=== PATIENT | female | born 1960 | race Caucasian/White ===

== ENCOUNTER 2017-06-22 15:37 | Emergency (ER) | payer MEDICAID, MEDICARE ==
--- NOTE | 2017-06-22 15:42 | ED Physician Chart ---
ED Chief Complaint/HPI - Patient Information Date Seen:: 06/22/17 Time Seen:: 15:30 Chief Complaint:: Back Pain History of Present Illness:: onset x 3 days of low back pain; pt denies trauma, H/As, neck pain, C/P, SOB, Abd. Pain, A/N/V/D/C, fever, chills, or urinary s/s Historian:: Patient, EMS Review:: Nurse's Note Reviewed, Old Chart Reviewed, EMS run form Reviewed <Kings Harrington - Last Filed: 06/22/17 18:42> - Patient Information Allergies:: Allergies Allergy/AdvReac Type Severity Reaction Status Date / Time iodine Allergy Verified 06/22/17 15:48 ketorolac Allergy Verified 06/22/17 15:49 meperidine Allergy Verified 06/22/17 15:49 NSAIDS (Non-Steroidal Allergy Verified 06/22/17 15:49 Anti-Inflamma tramadol Allergy Verified 06/22/17 15:49 Vitals:: Vital Signs - 8 hr 06/22/17 06/22/17 06/22/17 15:50 16:19 17:26 Temp 99.8 F HR 91 83 76 RR 18 18 16 BP 146/110 139/80 135/87 O2 Sat % 97 97 95 06/22/17 18:48 Temp HR 81 RR 16 BP 129/95 O2 Sat % 95 <Pedro Nguyen - Last Filed: 06/22/17 21:09> ED Review of Systems - Review of Systems General/Constitutional: No fever, No chills, No weight loss, No weakness, No diaphoresis, No edema, No loss of appetite Skin: No skin lesions, No rash, No bruising Head: No headache, No light-headedness Eyes: No loss of vision, No pain, No diplopia ENT: No earache, No nasal drainage, No sore throat, No tinnitus Neck: No neck pain, No swelling, No thyromegaly, No stiffness, No mass noted Cardio Vascular: No chest pain, No palpitations, No PND, No orthopnea, No edema Pulmonary: No SOB, No cough, No sputum, No wheezing GI: No nausea, No vomiting, No diarrhea, No pain, No melena, No hematochezia, No constipation, No hematemesis G/U: No dysuria, No frequency, No hematuria Resource Development Director: No vaginal discharge, No abnormal vaginal bleed, No contraction Musculoskeletal: Bone or joint pain, Back pain, Muscle pain Endocrine: No polyuria, No polydipsia Psychiatric: Prior psych history, Depression, No anxiety, No suicidal ideation, No homicidal ideation, No auditory hallucination, No visual hallucination Hematopoietic: No bruising, No lymphadenopathy Allergic/Immuno: No urticaria, No angioedema Neurological: No syncope, No focal symptoms, No weakness, No paresthesia, No headache, No seizure, No dizziness, No confusion, No vertigo <Kings Harrington - Last Filed: 06/22/17 18:42> ED Past Medical History - Past Medical History Obtainable: Yes Past Medical History: HTN, CAD, Asthma/COPD, CVA/TIA, Dyslipidemia, Thyroid disorder, Other (Leukemia; Multiple Myeloma) Family History: Diabetes Melitus, HTN, Cancer Social History: Non Smoker, No Alcohol, No Drug Use, Single, Care Facility Surgical History: None Psychiatricy History: Depression Medication: Reviewed <KarenhollandKings - Last Filed: 06/22/17 18:42> Family Medical History - Family Member Mother History Unknown: Yes <Kings Harrington - Last Filed: 06/22/17 18:42> ED Physical Exam - Physical Examination General/Constitutional: Awake, Well-developed, well-nourished, Alert, No distress, GCS 15, Non-toxic appearing, Ambulatory Head: Atraumatic Eyes: Lids, conjuctiva normal, PERRL, EOMI Skin: Nl inspection, No rash, No skin lesions, No ecchymosis, Well hydrated, No lymphadenopathy ENMT: External ears, nose nl, TM canals nl, Nasal exam nl, Lips, teeth, gums nl , Oropharynx nl, Tonsils nl Neck: Nontender, Full ROM w/o pain, No JVD, No nuchal rigidity, No bruit, No mass, No stridor Respiratory: Nl effort/Exclusion, Clear to Auscultation, No Wheeze/Rhonchi/Rales Cardio Vascular: No murmur, gallop, rubs, NL S1 S2, Carotid/Femoral/Distal pulses equal bilaterally Other Cardio Vascular comments:: Irregular Irregular Rhythm GI: No tenderness/rebounding/guarding, No organomegaly, No hernia, Normal BS's, Nondistended, No mass/bruits, No McBurney tenderness : No CVA tenderness Extremities: No tenderness or effusion, Full ROM, normal strength in all extremities, No edema, Normal digits & nails Neuro/Psych: Alert/oriented, DTR's symmetric, Normal sensory exam, Normal motor strength, Judgement/insight normal, Mood normal, Normal gait, No focal deficits Misc: Normal back, No paraspinal tenderness <Kings Harrington - Last Filed: 06/22/17 18:42> ED Labs/Radiology/EKG Results - Lab Results Comments:: WBC: 14.4; Na+: 134 - EKG Interpretations EKG Time:: 15:51 Rate & Rhythm: 100; Atrial Flutter/Fibrillation Comments:: non-specific st-t changes <Kings Harrington - Last Filed: 06/22/17 18:42> - Lab Results Results: Laboratory Tests 06/22/17 06/22/17 06/22/17 15:55 15:55 15:55 WBC 14.4 H RBC 4.38 Hgb 14.1 Hct 42.0 MCV 96.0 MCH 32.2 H MCHC Differential 33.6 RDW 15.4 Plt Count 289 MPV 7.2 Neutrophils % 75.4 Lymphocytes % 8.7 L Monocytes % 10.8 H Eosinophils % 4.1 Basophils % 1.0 PT 10.4 INR 1.00 Sodium 134 L Potassium 4.4 Chloride 99 Carbon Dioxide 26.8 Anion Gap 12.6 BUN 9 Creatinine 0.8 Est GFR ( Amer) > 60.0 Est GFR (Non-Af Amer) > 60.0 BUN/Creatinine Ratio 11.3 Glucose 100 Whole Bld Lactic Acid Calcium 9.4 Total Bilirubin 0.6 AST 32 ALT 16 Alkaline Phosphatase 99 Creatine Kinase 41 Troponin I B-Natriuretic Peptide Total Protein 6.8 Albumin 3.9 Globulin 2.9 Albumin/Globulin Ratio 1.3 Triglycerides 129 Cholesterol 140 LDL Cholesterol Direct 49 L HDL Cholesterol 57 Amylase 13 L Lipase 7 L Serum , Qual 06/22/17 06/22/17 06/22/17 15:55 15:55 15:55 WBC RBC Hgb Hct MCV MCH MCHC Differential RDW Plt Count MPV Neutrophils % Lymphocytes % Monocytes % Eosinophils % Basophils % PT INR Sodium Potassium Chloride Carbon Dioxide Anion Gap BUN Creatinine Est GFR ( Amer) Est GFR (Non-Af Amer) BUN/Creatinine Ratio Glucose Whole Bld Lactic Acid Calcium Total Bilirubin AST ALT Alkaline Phosphatase Creatine Kinase Troponin I 0.02 B-Natriuretic Peptide 23.4 Total Protein Albumin Globulin Albumin/Globulin Ratio Triglycerides Cholesterol LDL Cholesterol Direct HDL Cholesterol Amylase Lipase Serum , Qual NEGATIVE 06/22/17 15:55 WBC RBC Hgb Hct MCV MCH MCHC Differential RDW Plt Count MPV Neutrophils % Lymphocytes % Monocytes % Eosinophils % Basophils % PT INR Sodium Potassium Chloride Carbon Dioxide Anion Gap BUN Creatinine Est GFR ( Amer) Est GFR (Non-Af Amer) BUN/Creatinine Ratio Glucose Whole Bld Lactic Acid 0.87 Calcium Total Bilirubin AST ALT Alkaline Phosphatase Creatine Kinase Troponin I B-Natriuretic Peptide Total Protein Albumin Globulin Albumin/Globulin Ratio Triglycerides Cholesterol LDL Cholesterol Direct HDL Cholesterol Amylase Lipase Serum , Qual <Pedro Nguyen - Last Filed: 06/22/17 21:09> ED Septic Shock - . Is Septic Shock (SBP<90, OR Lactate>4 mmol\L) present?: No <Kings Harrington - Last Filed: 06/22/17 18:42> - <6hrs of presentation: Vital Signs: Vital Signs - 8 hr 06/22/17 06/22/17 06/22/17 15:50 16:19 17:26 Temp 99.8 F HR 91 83 76 RR 18 18 16 BP 146/110 139/80 135/87 O2 Sat % 97 97 95 06/22/17 18:48 Temp HR 81 RR 16 BP 129/95 O2 Sat % 95 <Pedro Nguyen - Last Filed: 06/22/17 21:09> ED Reassessment (Disposition) - Diagnosis Diagnosis:: Dx: Atrial Flutter/Fibrillation; Leukocytosis; Hyponatremia; Back Pain <Kings Harrington - Last Filed: 06/22/17 18:42> - Reassessment Reassessment Condition:: Improved - Diagnosis Diagnosis:: plan for d/c back to custodial - Aftercare/Follow up Instructions Aftercare/Follow-Up Instructions:: Counseled pt regarding lab results/diagnosis & need follow up - Patient Disposition Discharge/Transfer:: Interior Design Director Care - SNF <Pedro Nguyen - Last Filed: 06/22/17 21:09>
[2017-06-22] MEDS ORDERED: Sodium Chloride 0.9% 1,000 ML IV ONE (15:43)
[2017-06-22] MEDS ORDERED: HYDROmorphone 1 mg/mL 1mL Syr IVP STA (15:44)
[2017-06-22] MEDS ORDERED: HYDROmorphone 1 mg/mL 1mL Syr ONE (15:59)
[2017-06-22 16:02] LABS: EOSINOPHILE ABSOLUTE 0.6 Th/cmm (0.1-0.4); HEMOGLOBIN 14.1 gm/dL (12-16)
[2017-06-22 16:05] LABS: % EOSINOPHILS 4.1 % (0.0-5.0); % LYMPHOCYTES 8.7 % (20.0-50.0); % MONOCYTES 10.8 % (2.0-10.0); % NEUTROPHILS 75.4 % (40.0-80.0); BASOPHILE ABSOLUTE 0.1 Th/cumm (0-0.2); LYMPHOCYTE ABSOLUTE 1.3 Th/cmm (1.5-3.0); MEAN CORPUSCULAR HEMOGLOBIN 32.2 pg (27.0-31.0); MEAN CORPUSCULAR HGB CONC 33.6 pg (28.0-36.0); MEAN PLATELET VOLUME 7.2 fl; MONOCYTE ABSOLUTE 1.6 Th/cmm (0.3-1.0); NEUTROPHILE ABSOLUTE 10.8 Th/cmm (1.8-8.0); PLATELET COUNT 289 Th/cmm (150-400); RED BLOOD COUNT 4.38 Mil/cmm (3.80-5.10); RED CELL DISTRIBUTION WIDTH 15.4 % (11.5-20.0)
[2017-06-22 16:13] LABS: PROTHROMBIN TIME (TEST) 10.4 SECONDS (9.5-11.5)
[2017-06-22 16:19] LABS: ALB/GLOB RATIO 1.3 (1.0-1.8); ALBUMIN 3.9 gm/dL (3.7-5.3); ALKALINE PHOSPHATASE 99 U/L (34-104); AMYLASE SERUM 13 U/L (29-103); ANION GAP 12.6 (7.0-16.0); BILIRUBIN,TOTAL 0.6 mg/dL (0.3-1.0); BUN - UREA NITROGEN 9 mg/dL (7-25); CALCIUM SERUM 9.4 mg/dL (8.6-10.3); CARBON DIOXIDE 26.8 mEq/L (21.0-31.0); CHLORIDE 99 mEq/L (98-107); CHOLESTEROL 140 mg/dL (<200); CREATININE - SERUM 0.8 mg/dL (0.6-1.2); CREATININE KINASE 41 U/L (30-223); GFR AFRICAN-AMERICAN > 60.0 ml/min (>90); GFR NON AFRICAN-AMERICAN > 60.0 ml/min; GLUCOSE 100 mg/dL (70-105); HDL -HIGH DENSITY LIPOPROTEIN 57 mg/dL (23-92); LIPASE 7 U/L (11-82); POTASSIUM SERUM 4.4 mEq/L (3.5-5.1); SGOT 32 U/L (13-39); SGPT/ALT 16 U/L (7-52); SODIUM SERUM 134 mEq/L (136-145); TOTAL PROTEIN,SERUM 6.8 gm/dL (6.0-8.3); TRIGLYCERIDES 129 mg/dL (<150)
[2017-06-22 16:29] LABS: WHITE BLOOD COUNT 14.4 Th/cmm (4.8-10.8)
== END 2017-06-22 22:20 ==
LOC: ER 15:37
DX: I48.91 Unspecified atrial fibrillation (principal); I48.92 Unspecified atrial flutter; E87.1 Hypo-osmolality and hyponatremia; D72.829 Elevated white blood cell count, unspecified; M54.5 Low back pain; J44.9 Chronic obstructive pulmonary disease, unspecified; J45.909 Unspecified asthma, uncomplicated; I10 Essential (primary) hypertension; I25.10 Atherosclerotic heart disease of native coronary artery without angina pectoris; E78.5 Hyperlipidemia, unspecified; E07.9 Disorder of thyroid, unspecified; Z86.73 Personal history of transient ischemic attack (TIA), and cerebral infarction without residual deficits
CPT/HCPCS: 99285; 96361; 96374; 96375; 94760; 93005; 84484; 83880; 36415; 83605; 85025; 85610; 82150; 82550; 84703; 83690; 80053; 80061; 87040; J2060; J1170; J7030

== ENCOUNTER 2017-06-28 09:01 | Inpatient (IN) | payer MEDICAID ==
--- NOTE | 2017-06-28 09:27 | ED Physician Chart ---
ED Chief Complaint/HPI - Patient Information Date Seen:: 06/28/17 Time Seen:: 09:17 Chief Complaint:: Chronic back pain. History of Present Illness:: Pt has h/o chronic pain syndrome that includes chronic bilateral leg wounds with chronic pain. Pt has noticed increased level of her chronic low back pain for one week, reportedly related to her h/o leukemia and multiple myeloma. Pt denies any recent back injury. No urinary or fecal incontinence or retention. No LE weakness or numbness. Pt was brought in by ambulance from nursing facility because she told the staff that she wanted to kill herself but no plan. Pt has had depressed mood. No H.I. No hallucination. Pt has been on pain control with opioid analgesics. Pt is alert and oriented x 3 but is not fully cooperative; thus, H & P are limited. Info is primarily from review of limited transfer documents. Allergies:: Allergies Allergy/AdvReac Type Severity Reaction Status Date / Time iodine Allergy Verified 06/22/17 15:48 ketorolac Allergy Verified 06/22/17 15:49 meperidine Allergy Verified 06/22/17 15:49 NSAIDS (Non-Steroidal Allergy Verified 06/22/17 15:49 Anti-Inflamma tramadol Allergy Verified 06/22/17 15:49 Vitals:: see Nurse Note. Historian:: Patient, Medical Records (from transferring facility.) Family MD/PCP:: Dr. Nolnad LMP:: Postmenopausal. 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 Surgical History: other (Pt does not cooperate to provide info on Surgical Hx.) Psychiatricy History: Depression Medication: Reviewed Family Medical History - Family Member Mother History Unknown: Yes ED Physical Exam - Physical Examination General/Constitutional: Awake, Well-developed, well-nourished, Alert, No distress, Non-toxic appearing Other Gen/Cons comments:: Breathes comfortably and speaks clearly, but pt is not fully cooperative. Eyes: Lids, conjuctiva normal, PERRL, EOMI Skin: Well hydrated, No lymphadenopathy ENMT: External ears, nose nl, Nasal exam nl, Oropharynx nl, Tonsils nl Neck: Nontender, Full ROM w/o pain, No nuchal rigidity, No mass, No stridor Respiratory: Nl effort/Exclusion, Clear to Auscultation, No Wheeze/Rhonchi/Rales Cardio Vascular: RRR, No murmur, gallop, rubs GI: No tenderness/rebounding/guarding, No organomegaly, No hernia, Normal BS's, Nondistended, No mass/bruits, No McBurney tenderness Other GI comments:: Obese but soft. : No CVA tenderness Extremities: No edema Other Extremities comments:: Clean dressings noticed in both lower legs. Pt states that she has chronic ulcers in both lower legs that have been managed by her PCP. Pt does not want dressings to be removed for exam. Neuro/Psych: Alert/oriented (oriented x 3), DTR's symmetric (Negative SLR's bilaterally.), No focal deficits Other Neuro/Psych comments:: Pt appears to be agitated from time to time. Pt is not cooperative. Other Misc comments:: Tenderness at mid lower lumbar region. No gross deformity, erythema, or open wound. ED Labs/Radiology/EKG Results - Lab Results Results: Laboratory Results - last 24 hr 06/28/17 06/28/17 06/28/17 09:51 09:51 09:51 WBC 26.5 H* RBC 4.49 Hgb 14.0 Hct 43.3 MCV 96.3 MCH 31.1 H MCHC Differential 32.3 RDW 15.9 Plt Count 382 MPV 7.3 Band Neutrophils % 1 Neutrophils (Manual) 63 Lymphocytes 16 L Monocytes 6 Eosinophils 9 H Basophils 5 H Platelet Estimate ADEQUATE PT 10.0 INR 0.96 PTT (Actin FS) 20.8 L Sodium 136 Potassium 3.9 Chloride 98 Carbon Dioxide 31.3 H Anion Gap 10.6 BUN 6 L Creatinine 0.8 Est GFR ( Amer) > 60.0 Est GFR (Non-Af Amer) > 60.0 BUN/Creatinine Ratio 7.5 Glucose 106 H Whole Bld Lactic Acid Calcium 9.7 Total Bilirubin 0.6 AST 18 ALT 10 Alkaline Phosphatase 91 Troponin I Total Protein 7.4 Albumin 3.9 Globulin 3.5 Albumin/Globulin Ratio 1.1 TSH 06/28/17 06/28/17 06/28/17 09:51 09:51 09:51 WBC RBC Hgb Hct MCV MCH MCHC Differential RDW Plt Count MPV Band Neutrophils % Neutrophils (Manual) Lymphocytes Monocytes Eosinophils Basophils Platelet Estimate PT INR PTT (Actin FS) Sodium Potassium Chloride Carbon Dioxide Anion Gap BUN Creatinine Est GFR ( Amer) Est GFR (Non-Af Amer) BUN/Creatinine Ratio Glucose Whole Bld Lactic Acid 0.95 Calcium Total Bilirubin AST ALT Alkaline Phosphatase Troponin I 0.04 Total Protein Albumin Globulin Albumin/Globulin Ratio TSH 9.71 H urinalysis, sputum culture, blood cultures are pending. - Radiology Results Results: CT L spine: Mild compression fracture of L2. This is probably chronic. 2-3 mm posterior osteophytic complex at L1-L2. No subluxation. DJD. Osteopenia. ASVD. s /p Choly. Copious stool. 5 cm left renal cyst. Official report per Dr. Vinny Medina, radiologist. PCXR: Based on my interpretation, increased markings at R basilar region. Consider early infiltrate. Official report is pending. - EKG Interpretations EKG Time:: 09:38 Rate & Rhythm: NSR with VR 99 Comments:: Cannot r/o old IMI. NSSTT changes. ED Septic Shock - . Is Septic Shock (SBP<90, OR Lactate>4 mmol\L) present?: No ED Reassessment (Disposition) - Reassessment Reassessment:: 1000 Pt remains stable but appears to be in severe pain. Pt requests pain control and states that she responded to morphine well in the past. 1145 Pt has been repeatedly evaluated. Pt remains stable. Her pain has been better controlled. CT report just became available. EKG, CXR, CT, and available lab findings have been reviewed with pt. Management plan has been discussed. Admitting physician is to be contacted. 1200 Case was discussed with Dr. Fitch with pertinent H & P, EKG, CXR, CT, and available lab findings reviewed. Pt is to be admitted to [facility] under his care. Reassessment Condition:: Improved - Diagnosis Diagnosis:: Leukocytosis with h/o leukemia, consider early RLL pneumonia. Chronic pain syndrome with compression fracture of L2 by CT study. H/O CAD, HTN, COPD. H/O depression with suicidal ideation. Hypothyroidism with elevated TSH. - Patient Disposition Admitted to:: Med/Surg Admitting Medical Physician:: Edgardo Fitch Time:: 12:05 Condition at Disposition:: Stable, Improved
[2017-06-28] MEDS ORDERED: Morphine Sulfate 4 mg/mL 1mL Syr IV STA ×2 (10:00→11:06)
[2017-06-28] MEDS ORDERED: Morphine Sulfate 4 mg/mL 1mL Syr ONE ×2 (10:01→11:09)
[2017-06-28 10:03] LABS: HEMATOCRIT 43.3 % (41.0-60); LYMPHOCYTE ABSOLUTE 3.1 Th/cmm (1.5-3.0); MANUAL DIFF REQUIRED? YES; MEAN CELL VOLUME 96.3 fl (81-100); MEAN CORPUSCULAR HEMOGLOBIN 31.1 pg (27.0-31.0); MEAN CORPUSCULAR HGB CONC 32.3 pg (28.0-36.0); MEAN PLATELET VOLUME 7.3 fl; MONOCYTE ABSOLUTE 2.2 Th/cmm (0.3-1.0); NEUTROPHILE ABSOLUTE 19.2 Th/cmm (1.8-8.0); PLATELET COUNT 382 Th/cmm (150-400); RED BLOOD COUNT 4.49 Mil/cmm (3.80-5.10); RED CELL DISTRIBUTION WIDTH 15.9 % (11.5-20.0)
[2017-06-28 10:14] LABS: WHITE BLOOD COUNT 26.5 Th/cmm (4.8-10.8)
[2017-06-28 10:20] LABS: INR 0.96 (0.5-1.4)
[2017-06-28 10:30] LABS: ALB/GLOB RATIO 1.1 (1.0-1.8); ALBUMIN 3.9 gm/dL (3.7-5.3); ALKALINE PHOSPHATASE 91 U/L (34-104); ANION GAP 10.6 (7.0-16.0); BILIRUBIN,TOTAL 0.6 mg/dL (0.3-1.0); BUN - UREA NITROGEN 6 mg/dL (7-25); CALCIUM SERUM 9.7 mg/dL (8.6-10.3); CARBON DIOXIDE 31.3 mEq/L (21.0-31.0); CHLORIDE 98 mEq/L (98-107); CREATININE - SERUM 0.8 mg/dL (0.6-1.2); GFR AFRICAN-AMERICAN > 60.0 ml/min (>90); GFR NON AFRICAN-AMERICAN > 60.0 ml/min; GLUCOSE 106 mg/dL (70-105); POTASSIUM SERUM 3.9 mEq/L (3.5-5.1); SGOT 18 U/L (13-39); SGPT/ALT 10 U/L (7-52); SODIUM SERUM 136 mEq/L (136-145); TOTAL PROTEIN,SERUM 7.4 gm/dL (6.0-8.3)
[2017-06-28] MEDS ORDERED: cefTRIAXone 1 GM in Sodium Chloride 0.9% 50 ML IV ONE (10:46)
[2017-06-28] MEDS ORDERED: Levofloxacin 500mg/100mL 500 MG in Premix Fluid 1 BAG IV ONE (10:47)
[2017-06-28 10:54] LABS: BAND NEUTROPHILE 1 % (0-10); BASOPHIL 5 % (0-3); EOSINOPHIL 9 % (0-5); LYMPHOCYTE 16 % (20-50); MONOCYTE 6 % (2-10); NEUTROPHILS 63 % (40-80); TOTAL CELLS COUNTED 100
[2017-06-28 10:55] LABS: PLATELET ESTIMATE ADEQUATE (NORMAL)
[2017-06-28] MEDS ORDERED: Levofloxacin 500mg/100mL 500 MG/100 ML BAG IV ONE (10:57)
[2017-06-28] MEDS ORDERED: Azithromycin 500 MG in Sodium Chloride 0.9% 250 ML IV ONE (11:50)
[2017-06-28] MEDS ORDERED: Magnesium Hydroxide (MOM) 30 mL UDC PO PRN (17:10)
[2017-06-28] MEDS ORDERED: oxyCODONE 5 mg IR Tab PO PRN (17:37)
[2017-06-28] MEDS ORDERED: Morphine Sulfate 4 mg/mL 1mL Syr IVP ONE (17:41)
[2017-06-28] MEDS: D5-0.45NS w/20 mEq KCL 1,000 ML IV SCH (18:37)
[2017-06-28] MEDS: Albuterol/Ipratropium Neb 3 ML AERS HHN SCH (19:36)
--- NOTE | 2017-06-28 19:38 | History & Physical ---
ADMIT DATE: 06/28/2017 CHIEF COMPLAINT: Pain. HISTORY OF PRESENT ILLNESS: A 56-year-old female with past medical history significant for leukemia and chronic pain, presents complaining of ongoing pain. The patient was transferred from longterm because of the severe back pain. The patient was brought to the Emergency Room, apparently was diagnosed with pneumonia in the Emergency Room and has been admitted for further treatment and care. The patient is seen in hospital bed. The patient is distraught because her pain is not controlled. States that she had been on hospice a week and a half ago and was discharged and most of her pain medications were lowered or discontinued and since then she has been in severe pain. Her back pain has been going on for several months and without her chronic pain medication she has had increased breakthrough pain. The patient denies any trauma or recent falls. She was discharged from hospice because of extended prognosis. States that she has appointment with a polysomnographer and pain management at a later date, but could not wait to see them before her pain is under control. The patient denies any cough. States that she has regular bowel movements. Denies any abdominal pain. Her chronic pain is mostly in the bones and extremities. The patient has ongoing issues with ulcers in her legs and is getting Unna boots and chronic wound care in a longterm. She is at with twice a week, dressing changes. PAST MEDICAL HISTORY: The patient has history of leukemia. She has had it for years. Apparently, was refractory to treatment and that is the reason why she went on hospice. The patient also has history of asthma. She is an ex-smoker, has been oxygen dependent since she has been on hospice. Also, has history of depression and anxiety, hypothyroidism, hypertension, chronic pain and opiate dependence. According to records, the patient has history of congestive heart failure and COPD and chronic stasis ulcer of lower extremities with vascular insufficiency. ALLERGIES: The patient has allergy to IODINE, KETOROLAC, MEPERIDINE, TRAMADOL, NSAIDs. SOCIAL HISTORY: The patient is an ex-smoker. Denies alcohol or illicit drug use. The patient used to work as a nurse. FAMILY HISTORY: Noncontributory. REVIEW OF SYSTEMS: IMMUNOLOGIC: No recurrent infection. CARDIOVASCULAR: The patient has hypertension and has history of heart failure. GASTROINTESTINAL: No nausea, vomiting or diarrhea. ENDOCRINE: The patient has thyroid disorder. No known diabetes. HEMATOLOGIC: The patient has history of leukemia. NEUROLOGIC: No seizure or stroke. PHYSICAL EXAMINATION: VITAL SIGNS: Temperature 97.8, pulse 99, respiration 18, blood pressure 136/86. HEENT: Pupils equally round, anicteric sclerae. NECK: Supple, no JVD, mass or bruit. LUNGS: Decreased breath sounds at bases. HEART: S1, S2, regular rate and rhythm. ABDOMEN: Soft, nontender, positive bowel sounds. EXTREMITIES: The patient has 1+ edema bilateral lower extremities. She has a dressing from her feet to below her knee bilaterally. NEUROLOGIC: Generally weak. LABORATORY DATA: WBC is 26.5, BUN 6, creatinine 0.8. IMPRESSION: 1. Acute on chronic pain. 2. Degenerative joint disease. 3. Vertebral compression fracture, possibly old. 4. Opiate dependence. 5. Hypertension. 6. Chronic obstructive pulmonary disease. 7. Congestive heart failure. 8. Chronic venous stasis ulcers in the bilateral lower extremity. 9. Leukemia, refractory to treatment. PLAN: Admit to medical floor. The patient empirically given antibiotics. We will repeat a chest x-ray to further evaluate the infiltrates. Given patient's increased pain we will adjust her pain medication to minimize her discomfort. The patient obviously has a long history of chronic pain with a high tolerance to opiates. She would benefit from seeing a pain management doctor on follow up as has been already arranged. We will also request a psychiatric consult given her history of depression and anxiety. The patient will continue receiving wound care for her lower extremity. [facility]# [id number]
[2017-06-29] MEDS: Albuterol/Ipratropium Neb 3 ML AERS HHN SCH ×5 (01:01→18:49)
[2017-06-29] MEDS ORDERED: oxyCODONE 5 mg IR Tab PO PRN (01:10)
--- NOTE | 2017-06-29 07:23 | Diagnostic Imaging Report ---
CT scan lumbar spine HISTORY: Pain Total DLP equals 1139 CTDI equals 49.1 Axial sections were obtained through the lumbar spine. Additional sagittal and coronal reformatted images are provided. Generalized osteoporosis seen to the spine. Partial compression involving the body of L2. Mild diffuse degenerative changes with small spur formation noted about the endplates of all vertebrae. There is a mild extradural indentation on the anterior spinal canal related to the posterior superior margin of L2. No acute abnormalities. Specific, no definite acute fractures. Atherosclerotic vascular calcification seen in the aorta and iliac artery regions. Nonspecific interstitial changes and pleural thickening noted within the visualized regions of the lower lungs. IMPRESSION: 1. Generalized osteoporosis 2. Partial compression involving the body of L2 3. Mild diffuse degenerative changes 3. Atherosclerotic vascular changes 4. Approximate 5.0 cm left renal cyst. 5. Status post cholecystectomy
--- NOTE | 2017-06-29 07:24 | Diagnostic Imaging Report ---
Portable chest x-ray HISTORY: Leukocytosis, shortness of breath The overall heart size is difficult to assess portable technique and poor inspiration. Atherosclerotic vascular calcification seen in the aorta. No definite acute focal pulmonary processes. No hilar or mediastinal abnormalities. IMPRESSION: 1. Allowing for poor inspiration, no definite acute focal pulmonary processes 2. Suggestion of a somewhat generous heart size with atherosclerotic vascular changes
[2017-06-29] MEDS: oxyCODONE 5 mg IR Tab PO PRN ×3 (07:55→20:14)
[2017-06-29] MEDS ORDERED: fentaNYL 25 mcg/hr Tdm Patch TD SCH (09:00)
[2017-06-29] MEDS: methylPREDNISolone 4 MG TAB PO SCH (09:43)
[2017-06-29] MEDS: Multivitamin w/ Minerals Tab PO SCH (09:45)
[2017-06-29] MEDS ORDERED: Probiotic Screen MC PRN (09:45)
[2017-06-29] MEDS: Levothyroxine 0.125 Mg Tab PO SCH (09:55)
[2017-06-29] MEDS: Fluticasone Propionate 0.05mg/Actuation 16gm Nasal Spray NS SCH (09:55)
[2017-06-29] MEDS ORDERED: cefTRIAXone 1 GM in Sodium Chloride 0.9% 50 ML IV ONE (11:00)
[2017-06-29] MEDS ORDERED: Levofloxacin 500mg/100mL 500 MG/100 ML BAG IV SCH (11:30)
--- NOTE | 2017-06-29 22:42 | Internal Medicine Prog Note ---
Internal Medicine Subjective - Subjective Service Date: 06/29/17 Patient seen and examined:: with staff (SHE STILL HAS BACK PAIN.) Patient is:: awake, in bed, talking Per staff patient has:: no adverse event Internal Medicine Objective - Results Result Diagrams: 06/28/17 09:51 06/28/17 09:51 Recent Labs: Laboratory Last Values WBC 26.5 Th/cmm (4.8-10.8) H* 06/28/17 09:51 RBC 4.49 Mil/cmm (3.80-5.10) 06/28/17 09:51 Hgb 14.0 gm/dL (12-16) 06/28/17 09:51 Hct 43.3 % (41.0-60) 06/28/17 09:51 MCV 96.3 fl (81-100) 06/28/17 09:51 MCH 31.1 pg (27.0-31.0) H 06/28/17 09:51 MCHC Differential 32.3 pg (28.0-36.0) 06/28/17 09:51 RDW 15.9 % (11.5-20.0) 06/28/17 09:51 Plt Count 382 Th/cmm (150-400) 06/28/17 09:51 MPV 7.3 fl 06/28/17 09:51 Band Neutrophils % 1 % (0-10) 06/28/17 09:51 Neutrophils (Manual) 63 % (40-80) 06/28/17 09:51 Lymphocytes 16 % (20-50) L 06/28/17 09:51 Monocytes 6 % (2-10) 06/28/17 09:51 Eosinophils 9 % (0-5) H 06/28/17 09:51 Basophils 5 % (0-3) H 06/28/17 09:51 Platelet Estimate ADEQUATE (NORMAL) 06/28/17 09:51 PT 10.0 SECONDS (9.5-11.5) 06/28/17 09:51 INR 0.96 (0.5-1.4) 06/28/17 09:51 PTT (Actin FS) 20.8 SECONDS (26.0-38.0) L 06/28/17 09:51 Sodium 136 mEq/L (136-145) 06/28/17 09:51 Potassium 3.9 mEq/L (3.5-5.1) 06/28/17 09:51 Chloride 98 mEq/L (98-107) 06/28/17 09:51 Carbon Dioxide 31.3 mEq/L (21.0-31.0) H 06/28/17 09:51 Anion Gap 10.6 (7.0-16.0) 06/28/17 09:51 BUN 6 mg/dL (7-25) L 06/28/17 09:51 Creatinine 0.8 mg/dL (0.6-1.2) 06/28/17 09:51 Est GFR ( Amer) > 60.0 ml/min (>90) 06/28/17 09:51 Est GFR (Non-Af Amer) > 60.0 ml/min 06/28/17 09:51 BUN/Creatinine Ratio 7.5 06/28/17 09:51 Glucose 106 mg/dL (70-105) H 06/28/17 09:51 Whole Bld Lactic Acid 0.95 mmol/L (0.60-1.99) 06/28/17 09:51 Calcium 9.7 mg/dL (8.6-10.3) 06/28/17 09:51 Total Bilirubin 0.6 mg/dL (0.3-1.0) 06/28/17 09:51 AST 18 U/L (13-39) 06/28/17 09:51 ALT 10 U/L (7-52) 06/28/17 09:51 Alkaline Phosphatase 91 U/L (34-104) 06/28/17 09:51 Troponin I 0.04 ng/mL (0.01-0.05) 06/28/17 09:51 Total Protein 7.4 gm/dL (6.0-8.3) 06/28/17 09:51 Albumin 3.9 gm/dL (3.7-5.3) 06/28/17 09:51 Globulin 3.5 gm/dL 06/28/17 09:51 Albumin/Globulin Ratio 1.1 (1.0-1.8) 06/28/17 09:51 TSH 9.71 uIU/ml (0.34-5.60) H 06/28/17 09:51 - Physical Exam Vitals and I&O: Vital Signs Temp 98.7 F 06/29/17 20:00 Pulse 88 06/29/17 20:00 Resp 17 06/29/17 20:00 BP 104/58 06/29/17 20:00 Pulse Ox 97 06/29/17 20:00 Intake & Output 06/29/17 06/29/17 06/30/17 06:59 18:59 06:59 Intake Total 320 610 500 Balance 320 610 500 Weight (lbs) 63.503 kg 63.503 kg 63.503 kg Intake: Intake, IV Amount 250 Vancomycin HCl 1.25 gm In 250 Sodium Chloride 0.9% 250 ml @ 165 mls/hr IV Q12H [facility] Rx#:[id number] Oral 320 360 500 Other: # Voids 1 2 3 # Bowel Movements 0 Stool Characteristics Soft Soft Formed Formed Weight Source Bedscale Bedscale Bedscale Active Medications: Current Medications Acetaminophen (Tylenol) 650 mg PO Q4HR PRN PRN Reason: PAIN Stop: 08/27/17 17:09 Albuterol/Ipratropium (Duoneb Neb) 3 ml HHN Q6HRT [facility] Stop: 08/27/17 18:59 Last Admin: 06/29/17 18:49 Dose: 3 ml Bisacodyl (Dulcolax 10 Mg Supp) 10 mg RC Q24H PRN PRN Reason: Constipation Stop: 08/27/17 17:09 Bupropion HCl (Wellbutrin) 150 mg PO BID [facility] PRN Reason: Protocol Stop: 08/28/17 08:59 Last Admin: 06/29/17 17:54 Dose: 150 mg Clopidogrel Bisulfate (Plavix) 75 mg PO DAILY [facility] Stop: 08/28/17 08:59 Last Admin: 06/29/17 09:45 Dose: 75 mg Docusate Sodium (Colace) 250 mg PO DAILY [facility] Stop: 08/28/17 08:59 Last Admin: 06/29/17 09:44 Dose: 250 mg Escitalopram Oxalate (Lexapro) 30 mg PO HS [facility] PRN Reason: Protocol Stop: 08/27/17 20:59 Last Admin: 06/29/17 21:07 Dose: 30 mg Famotidine (Pepcid) 20 mg PO BID [facility] Stop: 08/28/17 08:59 Last Admin: 06/29/17 17:55 Dose: 20 mg Fentanyl (Duragesic 25 Mcg/Hr Tdm Patch) 1 patch TD Q72HR [facility] PRN Reason: Protocol Stop: 08/28/17 08:59 Last Admin: 06/29/17 09:41 Dose: 1 patch Fluticasone Propionate (Flonase) 1 spr NS DAILY [facility] Stop: 08/28/17 08:59 Last Admin: 06/29/17 09:55 Dose: 1 spr Potassium Chloride/Dextrose/Sod Cl (D5-0.45ns W/20 Meq Kcl) 1,000 mls @ 75 mls/ hr IV .[id number] [facility] Stop: 08/27/17 13:36 Last Admin: 06/28/17 18:37 Dose: 75 mls/hr Ceftriaxone Sodium 1 gm/ (Dextrose) 50 mls @ 100 mls/hr IV DAILY@1200 [facility] Stop: 08/27/17 17:59 Last Admin: 06/29/17 14:46 Dose: 100 mls/hr Vancomycin HCl 1.25 gm/ Sodium (Chloride) 250 mls @ 165 mls/hr IV Q12H [facility] Stop: 08/28/17 08:59 Last Infusion: 06/29/17 12:00 Dose: Infused Lactobacillus Rhamnosus (Culturelle 15b) 1 each PO DAILY [facility] Stop: 08/29/17 08:59 Levothyroxine Sodium (Synthroid) 0.125 mg PO DAILY [facility] Stop: 08/28/17 08:59 Last Admin: 06/29/17 09:55 Dose: 0.125 mg Loratadine (Claritin) 10 mg PO DAILY [facility] Stop: 08/28/17 08:59 Last Admin: 06/29/17 09:45 Dose: 10 mg Losartan Potassium (Cozaar) 50 mg PO DAILY [facility] Stop: 08/28/17 08:59 Last Admin: 06/29/17 09:45 Dose: Not Given Magnesium Hydroxide (Milk Of Magnesia) 30 ml PO Q6H PRN PRN Reason: CONSTIPATION IF NO BM IN 24 HR Stop: 08/27/17 17:09 Methylprednisolone (Medrol) 16 mg PO DAILY [facility] Stop: 08/28/17 08:59 Last Admin: 06/29/17 09:43 Dose: 16 mg Metoclopramide HCl (Reglan) 10 mg PO BID [facility] Stop: 08/28/17 08:59 Last Admin: 06/29/17 17:56 Dose: 10 mg Miscellaneous (Vancomycin Iv Per Pharmacy) 1 ea [facility] PRN [facility] Stop: 08/27/17 17:14 Miscellaneous (Probiotic Screen) 1 ea [facility] PRN PRN PRN Reason: PROTOCOL Stop: 08/28/17 09:44 Montelukast Sodium (Singulair) 10 mg PO HS [facility] Stop: 08/27/17 20:59 Last Admin: 06/29/17 21:07 Dose: 10 mg Nitroglycerin (Nitrostat) 0.4 mg SL Q5MIN PRN PRN Reason: CHEST PAIN X3 Stop: 08/27/17 17:09 Oxycodone HCl (Oxycodone Ir) 20 mg PO Q4H PRN PRN Reason: Pain (Moderate) Stop: 08/28/17 07:59 Last Admin: 06/29/17 20:14 Dose: 20 mg Senna (Senna) 17.2 mg PO DAILY [facility] Stop: 08/28/17 08:59 Last Admin: 06/29/17 09:44 Dose: 17.2 mg Simvastatin (Zocor) 10 mg PO HS [facility] Stop: 08/28/17 20:59 Last Admin: 06/29/17 21:08 Dose: 10 mg Thiamine HCl (Vitamin B1) 100 mg PO DAILY [facility] Stop: 08/28/17 08:59 Last Admin: 06/29/17 09:45 Dose: 100 mg General: alert HEENT: NC/AT, PERRLA, EOMI, anicteric sclerae, throat clear Neck: Supple, No JVD, No thyromegaly, +2 carotid pulse wo bruit, No LAD Lungs: CTAB Cardiovascular: RRR, Normal S1, Normal S2, without murmur Abdomen: soft, non-tender, non-distended Extremities: clear Neurological: no change Internal Medicine Assmt/Plan - Assessment Assessment: 1.CHRONIC BACK PAIN . 2.HTN. 3.COPD 4.OPIOD DEPENDENCY. - Plan Plan: CONTINUE ON CURRENT MEDICATION AND DIET.
[2017-06-30] MEDS: Albuterol/Ipratropium Neb 3 ML AERS HHN SCH ×3 (00:10→14:09)
[2017-06-30] MEDS: oxyCODONE 5 mg IR Tab PO PRN ×4 (00:18→12:50)
[2017-06-30] MEDS: D5-0.45NS w/20 mEq KCL 1,000 ML IV SCH (01:52)
[2017-06-30 06:09] LABS: ALB/GLOB RATIO 1.1 (1.0-1.8); ALBUMIN 3.2 gm/dL (3.7-5.3); ALKALINE PHOSPHATASE 70 U/L (34-104); BILIRUBIN,TOTAL 0.3 mg/dL (0.3-1.0); BUN - UREA NITROGEN 11 mg/dL (7-25); CALCIUM SERUM 8.9 mg/dL (8.6-10.3); CARBON DIOXIDE 28.8 mEq/L (21.0-31.0); CHLORIDE 101 mEq/L (98-107); CREATININE - SERUM 0.8 mg/dL (0.6-1.2); GFR AFRICAN-AMERICAN > 60.0 ml/min (>90); GFR NON AFRICAN-AMERICAN > 60.0 ml/min; GLUCOSE 110 mg/dL (70-105); POTASSIUM SERUM 3.8 mEq/L (3.5-5.1); SGOT 12 U/L (13-39); SGPT/ALT 7 U/L (7-52); SODIUM SERUM 136 mEq/L (136-145); TOTAL PROTEIN,SERUM 6.1 gm/dL (6.0-8.3)
[2017-06-30 06:33] LABS: BASOPHILE ABSOLUTE 0.1 Th/cumm (0-0.2); EOSINOPHILE ABSOLUTE 0.4 Th/cmm (0.1-0.4)
[2017-06-30 06:52] LABS: HEMATOCRIT 34.5 % (41.0-60); HEMOGLOBIN 11.5 gm/dL (12-16); MEAN CELL VOLUME 96.7 fl (81-100); MEAN CORPUSCULAR HEMOGLOBIN 32.1 pg (27.0-31.0); MEAN CORPUSCULAR HGB CONC 33.2 pg (28.0-36.0); PLATELET COUNT 271 Th/cmm (150-400); RED BLOOD COUNT 3.57 Mil/cmm (3.80-5.10); RED CELL DISTRIBUTION WIDTH 16.1 % (11.5-20.0); WHITE BLOOD COUNT 16.5 Th/cmm (4.8-10.8)
[2017-06-30 06:53] LABS: % BASOPHILS 0.9 % (0.0-2.0); % EOSINOPHILS 2.6 % (0.0-5.0); % LYMPHOCYTES 9.9 % (20.0-50.0); % MONOCYTES 11.4 % (2.0-10.0); % NEUTROPHILS 75.2 % (40.0-80.0); LYMPHOCYTE ABSOLUTE 1.6 Th/cmm (1.5-3.0); MEAN PLATELET VOLUME 7.4 fl; MONOCYTE ABSOLUTE 1.9 Th/cmm (0.3-1.0); NEUTROPHILE ABSOLUTE 12.5 Th/cmm (1.8-8.0)
[2017-06-30] MEDS: Fluticasone Propionate 0.05mg/Actuation 16gm Nasal Spray NS SCH (08:14)
[2017-06-30] MEDS: Levothyroxine 0.125 Mg Tab PO SCH (08:14)
[2017-06-30] MEDS: Multivitamin w/ Minerals Tab PO SCH (08:16)
[2017-06-30] MEDS ORDERED: Lactobacillus Rhamnosus GG 15 Billion CFU CAP.SPRINK PO SCH (09:00)
--- NOTE | 2017-06-30 11:38 | Consultation ---
DATE OF CONSULTATION: 06/28/2017 INFECTIOUS DISEASE CONSULTATION PRIMARY PHYSICIAN: Dr. Fitch and Dr. Escobar. 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 The patient's workup shows pneumonia and leukocytosis up to 25,000. The patient denies any fall or trauma. However, she has history of leukemia, refractory to treatment and vertebral compression fracture. The patient was started on Dilaudid and the patient's pain was well controlled. Antibiotic started. Sputum culture requested. Discussed with the staff. PAST MEDICAL HISTORY: Leukemia, asthma, also the patient is an ex-smoker, anxiety, depression, hypothyroidism, hypertension, chronic pain, COPD, CHF, and chronic stasis ulcers on the legs. ALLERGIES: ALLERGIC TO IODINE, TORADOL, DEMEROL, TRAMADOL, NSAIDS. SOCIAL HISTORY: The patient is an ex-smoker. FAMILY HISTORY: Negative. REVIEW OF SYSTEMS: A 14-point review of system negative except above. PHYSICAL EXAMINATION: GENERAL: Alert and awake, not in distress. Sitting in chair without any distress. VITAL SIGNS: Temperature 98, pulse 99, respiration 18, and blood pressure 136/86. HEENT: Mild pallor. No icterus or plaque. NECK: Supple. LUNGS: Breath sounds bilateral vesicular. Vesicular sounds are decreased. ABDOMEN: Soft and nontender. Bowel sounds. NODES: No thyroid and no cervical lymph nodes. EXTREMITIES: Venous insufficiency in legs. DIAGNOSTIC STUDIES: Chest x-ray shows infiltrate. LABORATORY DATA: White count is 26,000. Creatinine is normal. DIAGNOSES: Leukocytosis, pneumonia, history of leukemia, spinal compression fracture, opiate dependence, hypertension, COPD, and history of congestive heart failure. PLAN: The patient is started on vancomycin. Continue Rocephin, azithromycin, supportive care. Sputum cultures, urinalysis, urine cultures. Rest of the care as ordered in [facility]. Thank you, Dr. Fitch and Dr. Escobar for this consultation. JOB# [id number]
--- NOTE | 2017-06-30 12:31 | Infectious Disease Prog Note ---
Infectious Disease Subjective - Review of Systems Service Date: 06/30/17 Subjective: cc pn asthma hpi- pt schedule for discharge d/w dr lawler po levaquin suggested for 10 days ros no fevr o/e vs chest claer abd soft ext pilse Infectious Disease Objective - Results Result Diagrams: 06/30/17 05:30 06/30/17 05:30 Recent Labs: Laboratory Last Values WBC 16.5 Th/cmm (4.8-10.8) H 06/30/17 05:30 RBC 3.57 Mil/cmm (3.80-5.10) L 06/30/17 05:30 Hgb 11.5 gm/dL (12-16) L 06/30/17 05:30 Hct 34.5 % (41.0-60) L 06/30/17 05:30 MCV 96.7 fl (81-100) 06/30/17 05:30 MCH 32.1 pg (27.0-31.0) H 06/30/17 05:30 MCHC Differential 33.2 pg (28.0-36.0) 06/30/17 05:30 RDW 16.1 % (11.5-20.0) 06/30/17 05:30 Plt Count 271 Th/cmm (150-400) 06/30/17 05:30 MPV 7.4 fl 06/30/17 05:30 Neutrophils % 75.2 % (40.0-80.0) 06/30/17 05:30 Band Neutrophils % 1 % (0-10) 06/28/17 09:51 Lymphocytes % 9.9 % (20.0-50.0) L 06/30/17 05:30 Monocytes % 11.4 % (2.0-10.0) H 06/30/17 05:30 Eosinophils % 2.6 % (0.0-5.0) 06/30/17 05:30 Basophils % 0.9 % (0.0-2.0) 06/30/17 05:30 Neutrophils (Manual) 63 % (40-80) 06/28/17 09:51 Lymphocytes 16 % (20-50) L 06/28/17 09:51 Monocytes 6 % (2-10) 06/28/17 09:51 Eosinophils 9 % (0-5) H 06/28/17 09:51 Basophils 5 % (0-3) H 06/28/17 09:51 Platelet Estimate ADEQUATE (NORMAL) 06/28/17 09:51 PT 10.0 SECONDS (9.5-11.5) 06/28/17 09:51 INR 0.96 (0.5-1.4) 06/28/17 09:51 PTT (Actin FS) 20.8 SECONDS (26.0-38.0) L 06/28/17 09:51 Sodium 136 mEq/L (136-145) 06/30/17 05:30 Potassium 3.8 mEq/L (3.5-5.1) 06/30/17 05:30 Chloride 101 mEq/L (98-107) 06/30/17 05:30 Carbon Dioxide 28.8 mEq/L (21.0-31.0) 06/30/17 05:30 Anion Gap 10.0 (7.0-16.0) 06/30/17 05:30 BUN 11 mg/dL (7-25) 06/30/17 05:30 Creatinine 0.8 mg/dL (0.6-1.2) 06/30/17 05:30 Est GFR ( Amer) > 60.0 ml/min (>90) 06/30/17 05:30 Est GFR (Non-Af Amer) > 60.0 ml/min 06/30/17 05:30 BUN/Creatinine Ratio 13.8 06/30/17 05:30 Glucose 110 mg/dL (70-105) H 06/30/17 05:30 Whole Bld Lactic Acid 0.95 mmol/L (0.60-1.99) 06/28/17 09:51 Calcium 8.9 mg/dL (8.6-10.3) 06/30/17 05:30 Total Bilirubin 0.3 mg/dL (0.3-1.0) 06/30/17 05:30 AST 12 U/L (13-39) L 06/30/17 05:30 ALT 7 U/L (7-52) 06/30/17 05:30 Alkaline Phosphatase 70 U/L (34-104) 06/30/17 05:30 Troponin I 0.04 ng/mL (0.01-0.05) 06/28/17 09:51 Total Protein 6.1 gm/dL (6.0-8.3) 06/30/17 05:30 Albumin 3.2 gm/dL (3.7-5.3) L 06/30/17 05:30 Globulin 2.9 gm/dL 06/30/17 05:30 Albumin/Globulin Ratio 1.1 (1.0-1.8) 06/30/17 05:30 TSH 9.71 uIU/ml (0.34-5.60) H 06/28/17 09:51 - Physical Exam Vitals and I&O: Vital Signs Temp 97.4 F 06/30/17 11:38 Pulse 72 06/30/17 11:38 Resp 18 06/30/17 11:38 BP 120/64 06/30/17 11:38 Pulse Ox 93 06/30/17 11:38 Intake & Output 06/29/17 06/30/17 06/30/17 18:59 06:59 18:59 Intake Total 1610 750 Balance 1610 750 Weight (lbs) 63.503 kg 77.61 kg 77.564 kg Intake: Intake, IV Amount 1250 250 D5-0.45NS w/20 mEq KCL 1, 1000 000 ml @ 75 mls/hr IV . [id number] [facility] Rx#:[id number] Vancomycin HCl 1.25 gm In 250 250 Sodium Chloride 0.9% 250 ml @ 165 mls/hr IV Q12H [facility] Rx#:[id number] Oral 360 500 Other: # Voids 2 3 # Bowel Movements 0 Stool Characteristics Soft Formed Weight Source Bedscale Bedscale Estimated Active Medications: Current Medications Acetaminophen (Tylenol) 650 mg PO Q4HR PRN PRN Reason: PAIN Stop: 08/27/17 17:09 Albuterol/Ipratropium (Duoneb Neb) 3 ml HHN Q6HRT [facility] Stop: 08/27/17 18:59 Last Admin: 06/30/17 06:01 Dose: 3 ml Bisacodyl (Dulcolax 10 Mg Supp) 10 mg RC Q24H PRN PRN Reason: Constipation Stop: 08/27/17 17:09 Bupropion HCl (Wellbutrin) 150 mg PO BID [facility] PRN Reason: Protocol Stop: 08/28/17 08:59 Last Admin: 06/30/17 08:15 Dose: 150 mg Clopidogrel Bisulfate (Plavix) 75 mg PO DAILY [facility] Stop: 08/28/17 08:59 Last Admin: 06/30/17 08:16 Dose: 75 mg Docusate Sodium (Colace) 250 mg PO DAILY [facility] Stop: 08/28/17 08:59 Last Admin: 06/30/17 08:15 Dose: 250 mg Duloxetine HCl (Cymbalta) 60 mg PO X1 ONE PRN Reason: Protocol Stop: 06/30/17 12:13 Famotidine (Pepcid) 20 mg PO BID [facility] Stop: 08/28/17 08:59 Last Admin: 06/30/17 08:15 Dose: 20 mg Fentanyl (Duragesic 25 Mcg/Hr Tdm Patch) 1 patch TD Q72HR [facility] PRN Reason: Protocol Stop: 08/28/17 08:59 Last Admin: 06/29/17 09:41 Dose: 1 patch Fluticasone Propionate (Flonase) 1 spr NS DAILY [facility] Stop: 08/28/17 08:59 Last Admin: 06/30/17 08:14 Dose: 1 spr Potassium Chloride/Dextrose/Sod Cl (D5-0.45ns W/20 Meq Kcl) 1,000 mls @ 75 mls/ hr IV .[id number] [facility] Stop: 08/27/17 13:36 Last Admin: 06/30/17 01:52 Dose: 75 mls/hr Ceftriaxone Sodium 1 gm/ (Dextrose) 50 mls @ 100 mls/hr IV DAILY@1200 [facility] Stop: 08/27/17 17:59 Last Admin: 06/29/17 14:46 Dose: 100 mls/hr Vancomycin HCl 1.25 gm/ Sodium (Chloride) 250 mls @ 165 mls/hr IV Q12H [facility] Stop: 08/28/17 08:59 Last Infusion: 06/30/17 00:22 Dose: Infused Lactobacillus Rhamnosus (Culturelle 15b) 1 each PO DAILY [facility] Stop: 08/29/17 08:59 Levothyroxine Sodium (Synthroid) 0.125 mg PO DAILY [facility] Stop: 08/28/17 08:59 Last Admin: 06/30/17 08:14 Dose: 0.125 mg Loratadine (Claritin) 10 mg PO DAILY [facility] Stop: 08/28/17 08:59 Last Admin: 06/30/17 08:16 Dose: 10 mg Losartan Potassium (Cozaar) 50 mg PO DAILY [facility] Stop: 08/28/17 08:59 Last Admin: 06/30/17 08:20 Dose: 50 mg Magnesium Hydroxide (Milk Of Magnesia) 30 ml PO Q6H PRN PRN Reason: CONSTIPATION IF NO BM IN 24 HR Stop: 08/27/17 17:09 Methylprednisolone (Medrol) 16 mg PO DAILY [facility] Stop: 08/28/17 08:59 Last Admin: 06/29/17 09:43 Dose: 16 mg Metoclopramide HCl (Reglan) 10 mg PO BID [facility] Stop: 08/28/17 08:59 Last Admin: 06/30/17 08:16 Dose: 10 mg Miscellaneous (Vancomycin Iv Per Pharmacy) 1 ea PRN [facility] Stop: 08/27/17 17:14 Miscellaneous (Probiotic Screen) 1 ea PRN PRN PRN Reason: PROTOCOL Stop: 08/28/17 09:44 Montelukast Sodium (Singulair) 10 mg PO HS [facility] Stop: 08/27/17 20:59 Last Admin: 06/29/17 21:07 Dose: 10 mg Nitroglycerin (Nitrostat) 0.4 mg SL Q5MIN PRN PRN Reason: CHEST PAIN X3 Stop: 08/27/17 17:09 Oxycodone HCl (Oxycodone Ir) 20 mg PO Q4H PRN PRN Reason: Pain (Moderate) Stop: 08/28/17 07:59 Last Admin: 06/30/17 08:13 Dose: 20 mg Senna (Senna) 17.2 mg PO DAILY [facility] Stop: 08/28/17 08:59 Last Admin: 06/30/17 08:16 Dose: 17.2 mg Simvastatin (Zocor) 10 mg PO HS [facility] Stop: 08/28/17 20:59 Last Admin: 06/29/17 21:08 Dose: 10 mg Thiamine HCl (Vitamin B1) 100 mg PO DAILY [facility] Stop: 08/28/17 08:59 Last Admin: 06/30/17 08:16 Dose: 100 mg
[2017-06-30] MEDS: methylPREDNISolone 4 MG TAB PO SCH (13:20)
--- NOTE | 2017-06-30 18:33 | Discharge Summary ---
DATE OF DISCHARGE: 06/30/2017 FINAL DIAGNOSES: 1. Acute bronchitis. 2. Chronic back pain. 3. Hypertension. 4. Chronic obstructive pulmonary disease. 5. Leukocytosis. 6. Chronic back pains. 7. Compression fracture of L2. 8. History of leukemia. REVIEW OF HISTORY: The patient is a 56-year-old female with long history of leukemia, chronic back pain, degenerative disk disease, transferred from half-way to Emergency Room at [facility] for some cough and back pain. Initial workup significant for bronchitis, leukocytosis, back pain, admitted to the hospital. PHYSICAL EXAMINATION: VITAL SIGNS: Temperature 97.8, heart rate 99, blood pressure 136/86. CHEST: Good entry of air. HEART: S1, S2 normal. ABDOMEN: Soft, bowel sounds positive. EXTREMITIES: No edema. LABORATORY DATA: White blood cell 26.5 thousand ___. BUN 6, creatinine 0.8. The patient started on IV antibiotic. Dr. Arnold Rodriguez consulted on the case, Infectious Disease. COURSE OF HOSPITALIZATION: During hospitalization, the patient remained stable clinically. X-ray of the back significant for L2 compression fracture. Chest x-ray negative for pneumonia. On 06/30/2017, the patient was seen by Dr. García, psychiatrist and she changed her Lexapro to Cymbalta and cleared her to be discharged. Case discussed with Dr. Arnold Rodriguez and he suggested to be on Levaquin 500 for 10 days. DISPOSITION: The patient will be discharged back to SNF unit to continue on her medication and diet. Levaquin 500 mg once a day for 10 days. Follow up with pain management as outpatient. CONDITION ON DISCHARGE: Stable. MEDICATIONS: Follow discharge reconciliation. JOB# [id number]
--- NOTE | 2017-06-30 22:43 | Consultation ---
DATE OF CONSULTATION: 06/30/2017 IDENTIFYING INFORMATION: The patient is a 56-year-old female. REASON FOR CONSULTATION: ____ with depression. HISTORY OF PRESENT ILLNESS: The patient was admitted because of leukemia, chronic pain. She has an ongoing pain. She was transferred from a nursing facility because of severe back pain. She has been in the Emergency Room, apparently was diagnosed with pneumonia in the Emergency Room and has been admitted for further treatment and care. When I talked to her, she was alert. She was on a wheelchair. She actually did not tell me about leukemia that she, but she said she has severe asthma and she has to go to a nursing facility and that is when she developed ____ leg ulcers on her legs, so she has to be in a nursing facility. She admits to feeling depressed that started 33 years ago when her 2 years old daughter and it got worse 2 years ago when her mother . The patient reports her daughter of myocarditis. The patient reports she has been depressed, unable to enjoy herself. She has been prescribed Lexapro; however, she report is not helping, they added BuSpar and that was not helpful either. She said she sleeps a lot. Appetite varies. She denies any visual hallucination or paranoia. Denies any intent to harm herself or anybody. PAST PSYCHIATRIC HISTORY: The patient was seen by a psychiatrist at [facility]. She said then she was given Lexapro, has been taken it for a while and is not working. MEDICAL HISTORY: Leukemia. She also has sores on her legs and asthma. She is oxygen dependent, hypothyroidism, hypertension, chronic pain, history of opiate dependence with a history of congestive heart failure, COPD, chronic stasis ulcers of lower extremity with vascular insufficiency. ALLERGIES: TO IODINE, KETOROLAC, MEPERIDINE, TRAMADOL, NSAID. FAMILY AND SOCIAL HISTORY: The patient is for more than 20 years. She has 3 children, 2 sons and 1 daughter that at age 2, 33 years ago. Mother 2 years ago. She is not very close to her sons. She reports one of her son has anger issues. No other family psychotic disorder. She denies having any legal or any gambling problem. MEDICATIONS: The patient has been on Lexapro 30 mg at bedtime and bupropion 150 mg twice a day. MENTAL STATUS EXAMINATION: The patient is appropriately dressed, appropriately groomed. She was alert, oriented to place, person, time, and situation. She denies any current intent to harm herself or anybody. Denies any auditory or visual hallucination or paranoia. 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 Insight and judgment seems to be fair. IMPRESSION: AXIS I: Major depression, recurrent, severe with no psychosis. MEDICAL DIAGNOSIS: As per Dr. Fitch. PLAN: I would recommend to take her off Lexapro and start her on Cymbalta, Dr. Fitch already put the order and the patient needs to follow up with a psychiatrist when discharged. Thank you very much for allowing me to participate in the care of this most interesting lady. JOB# [id number]
== END 2017-06-30 16:32 | DRG 720 ==
LOC: ER 09:01 → MSI 12:15
PROVIDERS: ADMIT Family Medicine; ATTEND Family Medicine
DX: A41.9 Sepsis, unspecified organism (principal); J18.9 Pneumonia, unspecified organism; C90.00 Multiple myeloma not having achieved remission; I11.0 Hypertensive heart disease with heart failure; F33.2 Major depressive disorder, recurrent severe without psychotic features; F11.20 Opioid dependence, uncomplicated; I50.9 Heart failure, unspecified; M48.56XA Collapsed vertebra, not elsewhere classified, lumbar region, initial encounter for fracture; G62.9 Polyneuropathy, unspecified; J44.0 Chronic obstructive pulmonary disease with (acute) lower respiratory infection; J20.9 Acute bronchitis, unspecified; G89.4 Chronic pain syndrome; I25.10 Atherosclerotic heart disease of native coronary artery without angina pectoris; E78.5 Hyperlipidemia, unspecified; K21.9 Gastro-esophageal reflux disease without esophagitis; E03.9 Hypothyroidism, unspecified; F41.9 Anxiety disorder, unspecified; I87.2 Venous insufficiency (chronic) (peripheral); Z88.6 Allergy status to analgesic agent; Z85.6 Personal history of leukemia; Z91.041 Radiographic dye allergy status; Z87.891 Personal history of nicotine dependence
CPT/HCPCS: 36415-UA; 71045-TC; 72131-TC; 80053-TC; 83605; 84443-TC; 84484-TC; 85007-TC; 85025-TC; 85027-TC; 85610-TC; 86738-90; 87070; 87086-90; 90784; 93005; 94640; 94760; 96375; 96376; J0456; J0696; J1956; J3370; J7509; Z7610

== ENCOUNTER 2017-10-21 04:58 | Inpatient (IN) | payer MEDICAID ==
[2017-10-21] MEDS ORDERED: Albuterol/Ipratropium Neb 3 ML AERS HHN ONE ×2 (05:31→05:53)
--- NOTE | 2017-10-21 05:33 | ED Physician Chart ---
ED Chief Complaint/HPI - Patient Information Date Seen:: 10/21/17 Time Seen:: 05:33 Chief Complaint:: Shortness of breath History of Present Illness:: 56 yo female was brought from to ER for evaluation of shortness of breath for 1 hour. Patient was not talking as much as her usual state. At ER, patient was drowsy but was able to answer questions and screamed "I want oxygen", "I do not want straight catheter." Patient appeared to have a kyphotic cervical spine/ upper thoracic spine. Allergies:: Allergies Allergy/AdvReac Type Severity Reaction Status Date / Time iodine Allergy Verified 10/21/17 05:19 ketorolac Allergy Verified 10/21/17 05:19 meperidine Allergy Verified 10/21/17 05:19 NSAIDS (Non-Steroidal Allergy Verified 10/21/17 05:19 Anti-Inflamma tramadol Allergy Verified 10/21/17 05:19 Vitals:: Vital Signs - 8 hr 10/21/17 05:00 Temp 96.9 F HR 88 RR 20 BP 142/95 O2 Sat % 96 ED Review of Systems - Review of Systems General/Constitutional: No fever Skin: Bruising Head: No headache Eyes: No pain ENT: No nasal drainage Neck: No neck pain Cardio Vascular: No chest pain Pulmonary: SOB GI: No nausea, No vomiting G/U: Other (urinary incontinent) Musculoskeletal: No bone or joint pain Psychiatric: Depression Neurological: Weakness ED Past Medical History - Past Medical History Past Medical History: HTN, CHF, Asthma/COPD, CVA/TIA, Dyslipidemia, PUD/GERD, Other (Multiple myeloma, chronic leukemia) Social History: Non Smoker, No Alcohol, No Drug Use Psychiatricy History: Depression Family Medical History - Family Member Mother History Unknown: Yes ED Physical Exam - Physical Examination Other Gen/Cons comments:: arousable to voice Head: Atraumatic Eyes: PERRL Other Skin comments:: Left arm ecchymosis ENMT: Nasal exam nl Neck: No nuchal rigidity Respiratory: No Wheeze/Rhonchi/Rales Cardio Vascular: RRR, No murmur, gallop, rubs, NL S1 S2 GI: No tenderness/rebounding/guarding Other Extremities comments:: edema Other Neuro/Psych comments:: drowsy ED Labs/Radiology/EKG Results - Lab Results Results: Laboratory Tests 10/21/17 05:01 POC Glucose 89 Laboratory Last Values WBC 32.7 Th/cmm (4.8-10.8) H* 10/21/17 05:30 RBC 3.78 Mil/cmm (3.80-5.10) L 10/21/17 05:30 Hgb 13.2 gm/dL (12-16) 10/21/17 05:30 Hct 40.1 % (41.0-60) L 10/21/17 05:30 MCV 106.2 fl (81-100) H 10/21/17 05:30 MCH 34.9 pg (27.0-31.0) H 10/21/17 05:30 MCHC Differential 32.9 pg (28.0-36.0) 10/21/17 05:30 RDW 17.5 % (11.5-20.0) 10/21/17 05:30 Plt Count 620 Th/cmm (150-400) H 10/21/17 05:30 MPV 7.1 fl 10/21/17 05:30 Add Manual Diff YES 10/21/17 05:30 Band Neutrophils % 2 % (0-10) 10/21/17 05:30 Neutrophils (Manual) 70 % (40-80) 10/21/17 05:30 Lymphocytes 14 % (20-50) L 10/21/17 05:30 Monocytes 8 % (2-10) 10/21/17 05:30 Eosinophils 1 % (0-5) 10/21/17 05:30 Metamyelocytes 4 % (0-0) H 10/21/17 05:30 Myelocytes 1 % 10/21/17 05:30 Platelet Estimate ADEQUATE (NORMAL) 10/21/17 05:30 PT 9.7 SECONDS (9.5-11.5) 10/21/17 05:30 INR 0.93 (0.5-1.4) 10/21/17 05:30 PTT (Actin FS) 25.0 SECONDS (26.0-38.0) L 10/21/17 05:30 D-Dimer 652 ng/mL (100-400) H 10/21/17 05:30 Specimen Source Arterial 10/21/17 05:31 Sample Site Right Radial 10/21/17 05:31 pH 7.46 (7.35-7.45) H 10/21/17 05:31 pCO2 56.0 mmHg (35.0-45.0) H* 10/21/17 05:31 pO2 72.0 mmHg (80.0-100.0) L 10/21/17 05:31 HCO3 35.6 mEq/L (20.0-26.0) H 10/21/17 05:31 Base Excess 13.7 mEq/L (-3.0-3.0) H 10/21/17 05:31 O2 Saturation 95.0 % (92.0-100.0) 10/21/17 05:31 Golden Test Positive 10/21/17 05:31 Vent Rate NA 10/21/17 05:31 Inspired O2 28 10/21/17 05:31 Tidal Volume NA 10/21/17 05:31 PEEP NA 10/21/17 05:31 Pressure (ins/psv/peep) NA 10/21/17 05:31 Critical Value SC 10/21/17 05:31 Sodium 139 mEq/L (136-145) 10/21/17 05:30 Potassium 3.3 mEq/L (3.5-5.1) L 10/21/17 05:30 Chloride 99 mEq/L (98-107) 10/21/17 05:30 Carbon Dioxide 33.0 mEq/L (21.0-31.0) H 10/21/17 05:30 Anion Gap 10.3 (7.0-16.0) 10/21/17 05:30 BUN 14 mg/dL (7-25) 10/21/17 05:30 Creatinine 0.7 mg/dL (0.6-1.2) 10/21/17 05:30 Est GFR ( Amer) > 60.0 ml/min (>90) 10/21/17 05:30 Est GFR (Non-Af Amer) > 60.0 ml/min 10/21/17 05:30 BUN/Creatinine Ratio 20.0 10/21/17 05:30 Glucose 85 mg/dL (70-105) 10/21/17 05:30 POC Glucose 89 MG/DL (70 - 105) 10/21/17 05:01 Whole Bld Lactic Acid 0.82 mmol/L (0.60-1.99) 10/21/17 05:00 Calcium 9.1 mg/dL (8.6-10.3) 10/21/17 05:30 Total Bilirubin 0.5 mg/dL (0.3-1.0) 10/21/17 05:30 AST 20 U/L (13-39) 10/21/17 05:30 ALT 21 U/L (7-52) 10/21/17 05:30 Alkaline Phosphatase 74 U/L (34-104) 10/21/17 05:30 Troponin I 0.03 ng/mL (0.01-0.05) 10/21/17 05:30 B-Natriuretic Peptide 54.0 pg/mL (5.0-100.0) 10/21/17 05:30 Total Protein 6.0 gm/dL (6.0-8.3) 10/21/17 05:30 Albumin 3.7 gm/dL (3.7-5.3) 10/21/17 05:30 Globulin 2.3 gm/dL 10/21/17 05:30 Albumin/Globulin Ratio 1.6 (1.0-1.8) 10/21/17 05:30 - Radiology Results Results: CXR: limited view due to altered body habitus - EKG Interpretations EKG Time:: 05:19 Rate & Rhythm: 91 bpm, sinus rhythm [place]: Borderline left axis deviation Intervals: TN 146, QRS 88 Comments:: Nonspecific T wave changes anterior leads ED Assessment - Assessment General Assessment: Leukocytosis COPD exacerbation Hypoxic and hypercapnic respiratory distress Metabolic alkalosis Multiple myeloma Chronic leukemia Assessment/Comments:: CBC, CMP, Trop I, BNP, D-dimer, PT/PTT, UA EKG, CXR DuoNeb Levofloxacin 750mg IV NS 1L IV bolus Admit to telemetry for further evaluation and management ED Septic Shock - . Is Septic Shock (SBP<90, OR Lactate>4 mmol\\L) present?: No - <6hrs of presentation: Vital Signs: Vital Signs - 8 hr 10/21/17 05:00 Temp 96.9 F HR 88 RR 20 BP 142/95 O2 Sat % 96 ED Reassessment (Disposition) - Reassessment Reassessment Condition:: Improved - Patient Disposition Discharge/Transfer:: Acute Care w/in this hosp Admitting Medical Physician:: Alex Marie
[2017-10-21 05:45] LABS: HEMATOCRIT 40.1 % (41.0-60); HEMOGLOBIN 13.2 gm/dL (12-16); MEAN CORPUSCULAR HEMOGLOBIN 34.9 pg (27.0-31.0); MEAN CORPUSCULAR HGB CONC 32.9 pg (28.0-36.0); MEAN PLATELET VOLUME 7.1 fl; PLATELET COUNT 620 Th/cmm (150-400); RED BLOOD COUNT 3.78 Mil/cmm (3.80-5.10); RED CELL DISTRIBUTION WIDTH 17.5 % (11.5-20.0)
[2017-10-21 05:47] LABS: MEAN CELL VOLUME 106.2 fl (81-100); WHITE BLOOD COUNT 32.7 Th/cmm (4.8-10.8)
[2017-10-21] MEDS ORDERED: Levofloxacin 750mg/150mL 750 MG/150 ML BAG IV ONE ×2 (05:48→05:51)
[2017-10-21 06:05] LABS: ALB/GLOB RATIO 1.6 (1.0-1.8); ALBUMIN 3.7 gm/dL (3.7-5.3); ALKALINE PHOSPHATASE 74 U/L (34-104); ANION GAP 10.3 (7.0-16.0); BILIRUBIN,TOTAL 0.5 mg/dL (0.3-1.0); BUN - UREA NITROGEN 14 mg/dL (7-25); CALCIUM SERUM 9.1 mg/dL (8.6-10.3); CHLORIDE 99 mEq/L (98-107); CREATININE - SERUM 0.7 mg/dL (0.6-1.2); GFR AFRICAN-AMERICAN > 60.0 ml/min (>90); GFR NON AFRICAN-AMERICAN > 60.0 ml/min; GLUCOSE 85 mg/dL (70-105); POTASSIUM SERUM 3.3 mEq/L (3.5-5.1); SGOT 20 U/L (13-39); SGPT/ALT 21 U/L (7-52); SODIUM SERUM 139 mEq/L (136-145)
[2017-10-21 06:15] LABS: ALLEN TEST Positive
[2017-10-21 06:17] LABS: pH 7.46 (7.35-7.45)
[2017-10-21 06:28] LABS: BAND NEUTROPHILE 2 % (0-10); EOSINOPHIL 1 % (0-5); LYMPHOCYTE 14 % (20-50); METAMYELOCYTE 4 % (0-0); MONOCYTE 8 % (2-10); MYELOCYTE 1 %; NEUTROPHILS 70 % (40-80)
[2017-10-21 06:29] LABS: PLATELET ESTIMATE ADEQUATE (NORMAL)
[2017-10-21] MEDS ORDERED: Sodium Chloride 0.9% 1,000 ML IV ONE (07:05)
[2017-10-21 07:25] LABS: INR 0.93 (0.5-1.4); PROTHROMBIN TIME (TEST) 9.7 SECONDS (9.5-11.5)
[2017-10-21] MEDS ORDERED: Sodium Chloride 0.9% 1,000 ML IV SCH (08:08)
--- NOTE | 2017-10-21 08:28 | Diagnostic Imaging Report ---
CHEST X-RAY: AP view INDICATION: Shortness of breath COMPARISON: 06/28/2017 FINDINGS: Exam is limited due to positioning and body habitus. Increased left basal lung markings are noted. The left apex cannot be well evaluated due to patient's positioning. Heart size cannot also not be well evaluated on this exam. Atherosclerosis is noted. Degenerative changes of the spine are seen with chronic appearing spinal compression deformities. IMPRESSION: Limited exam due to body habitus and positioning. Left basal increased lung markings favoring atelectatic changes. Underlying infiltrate is less likely. Atherosclerotic vascular disease.
[2017-10-21] MEDS ORDERED: fentaNYL 25 mcg/hr Tdm Patch TD SCH ×2 (09:15→14:00)
--- NOTE | 2017-10-21 09:21 | History and Physical ---
History of Present Illness - HPI Chief Complaint: Shortness of breath HPI: 56 y/o female who presents to [facility] for Shortness of breath noted at SNF. Patient has a PMH which includes COPD, Thyroid Disorder, HYperlipidemia , CVA, Multiple Myeloma, decubitus ulcer L foot, pneumonia, GERD , Depression, HTN, CHF. While in the ER patient had initial labwork which revealed. LDH 377 D Dimer 652 PT/INR 9.7/0.93 BNP 54 trop 0.03 Na 139 K 3.3 BUN/Cr 14/0.7 glucose 85 AST 20 ALT 21 Alk phos 74 WBC 32.7 H/H 13.2/40.1 plat 620 lactic acid 0.82 ABG's Ph 7.46 Vital Signs: Last Vital Signs Temp 97.0 F 10/21/17 07:39 Pulse 85 10/21/17 07:39 Resp 13 10/21/17 07:39 BP 101/66 10/21/17 07:39 Pulse Ox 94 10/21/17 07:39 Past Medical History Cardiovascular: Report: CHF, Hyperlipidemia Pulmonary: Report: COPD [employer]ATOR: Report: CVA GI: Report: No Pertinent Hx Psych: Report: Depression Endocrine: Report: Hypothyroidism Other History: multiple myeloma, chronic leukemia - Past Surgical History Past Surgical History: No pertinent Hx Family Medical History - Family Member Mother History Unknown: Yes Social History Smoke: No Alcohol: None Drugs: None Lives: Detention - Medications Home Medications: Home Medication Medication Instructions Recorded Type Acetaminophen [Tylenol] 650 mg PO Q6HR PRN 06/22/17 History Albuterol/Ipratropium Neb [Duoneb 3 ml HHN Q6HR 06/22/17 History Neb] Clopidogrel [Plavix] 75 mg PO DAILY 06/22/17 History Escitalopram Oxalate [Lexapro] 30 mg PO HS 06/22/17 History Famotidine 20 mg PO BID 06/22/17 History Loratadine [Claritin] 10 mg PO DAILY 06/22/17 History Losartan Potassium [Cozaar] 50 mg PO DAILY 06/22/17 History Oxycodone HCl 20 mg PO Q6HR PRN 06/22/17 History buPROPion [Wellbutrin] 150 mg PO BID 06/22/17 History fentaNYL 25 mcg/hr [Duragesic 25 25 mcg TD Q72HR 06/22/17 History mcg/hr Tdm Patch] Aspirin [Ecotrin] 81 mg PO DAILY 10/21/17 History Baclofen [Lioresal*] 10 mg PO BID 10/21/17 History Budesonide [Pulmicort] 0.5 mg IH BID 10/21/17 History Docusate Sodium [Colace] 100 mg PO BID 10/21/17 History Fluticasone Propionate Nasal 1 spr NS DAILY 10/21/17 History [Flonase] Oxycodone HCl 20 mg PO Q4HR PRN 10/21/17 History Prednisone [Deltasone] 20 mg PO TID 10/21/17 History Simvastatin [Zocor] 10 mg PO HS 10/21/17 History fentaNYL 25 mcg/hr [Duragesic 25 25 mcg TD Q72HR 10/21/17 History mcg/hr Tdm Patch] - Allergies Allergies/Adverse Reactions: Allergies Allergy/AdvReac Type Severity Reaction Status Date / Time iodine Allergy Verified 10/21/17 05:19 ketorolac Allergy Verified 10/21/17 05:19 meperidine Allergy Verified 10/21/17 05:19 NSAIDS (Non-Steroidal Allergy Verified 10/21/17 05:19 Anti-Inflamma tramadol Allergy Verified 10/21/17 05:19 Review of Systems - Review of Systems Constitutional: Report: No Significant Eyes: Report: No Significant ENT: Report: No Significant Respiratory: Report: No Significant Cardiovascular: Report: No Significant Gastrointestinal: Report: No Significant Genitourinary: Report: No Significant Musculoskeletal: Report: No Significant Skin: Report: No Significant Neurological: Report: No Significant Physical Exam - Physical Exam HEENT: Report: Ears Nose Throat within normal limits, Pharnyx within normal limits Neck: Report: Within normal limits Cardiovascular Systems: Report: +s1/s2 noted, Regular, Rate and Rhythm Respiratory: Report: Other (decreased breath sounds) Abdomen: Report: Non-tender to palpation Back: Report: Inspection of back is within normal limits. Extremities: Report: Non-tender to palpation. Skin: Report: Color of skin is within normal limits Neuro/Psych: Report: Mood affect is within normal limits - Lab Results All Lab Results last 24 hours: Laboratory Results - last 24 hr 10/21/17 10/21/17 10/21/17 05:00 05:01 05:30 WBC 32.7 H* RBC 3.78 L Hgb 13.2 Hct 40.1 L MCV 106.2 H MCH 34.9 H MCHC Differential 32.9 RDW 17.5 Plt Count 620 H MPV 7.1 Add Manual Diff YES Band Neutrophils % 2 Neutrophils (Manual) 70 Lymphocytes 14 L Monocytes 8 Eosinophils 1 Metamyelocytes 4 H Myelocytes 1 Platelet Estimate ADEQUATE PT INR PTT (Actin FS) D-Dimer Specimen Source Sample Site pH pCO2 pO2 HCO3 Base Excess O2 Saturation Golden Test Vent Rate Inspired O2 Tidal Volume PEEP Pressure (ins/psv/peep) Critical Value Sodium Potassium Chloride Carbon Dioxide Anion Gap BUN Creatinine Est GFR ( Amer) Est GFR (Non-Af Amer) BUN/Creatinine Ratio Glucose POC Glucose 89 Whole Bld Lactic Acid 0.82 Calcium Total Bilirubin AST ALT Alkaline Phosphatase Lactate Dehydrogenase Troponin I B-Natriuretic Peptide Total Protein Albumin Globulin Albumin/Globulin Ratio [facility] 10/21/17 10/21/17 10/21/17 05:30 05:30 05:30 WBC RBC Hgb Hct MCV MCH MCHC Differential RDW Plt Count MPV Add Manual Diff Band Neutrophils % Neutrophils (Manual) Lymphocytes Monocytes Eosinophils Metamyelocytes Myelocytes Platelet Estimate PT INR PTT (Actin FS) D-Dimer Specimen Source Sample Site pH pCO2 pO2 HCO3 Base Excess O2 Saturation Golden Test Vent Rate Inspired O2 Tidal Volume PEEP Pressure (ins/psv/peep) Critical Value Sodium 139 Potassium 3.3 L Chloride 99 Carbon Dioxide 33.0 H Anion Gap 10.3 BUN 14 Creatinine 0.7 Est GFR ( Amer) > 60.0 Est GFR (Non-Af Amer) > 60.0 BUN/Creatinine Ratio 20.0 Glucose 85 POC Glucose Whole Bld Lactic Acid Calcium 9.1 Total Bilirubin 0.5 AST 20 ALT 21 Alkaline Phosphatase 74 Lactate Dehydrogenase Troponin I 0.03 B-Natriuretic Peptide 54.0 Total Protein 6.0 Albumin 3.7 Globulin 2.3 Albumin/Globulin Ratio 1.6 [facility] 10/21/17 10/21/17 10/21/17 05:30 05:30 05:30 WBC RBC Hgb Hct MCV MCH MCHC Differential RDW Plt Count MPV Add Manual Diff Band Neutrophils % Neutrophils (Manual) Lymphocytes Monocytes Eosinophils Metamyelocytes Myelocytes Platelet Estimate PT 9.7 INR 0.93 PTT (Actin FS) 25.0 L D-Dimer 652 H Specimen Source Sample Site pH pCO2 pO2 HCO3 Base Excess O2 Saturation Golden Test Vent Rate Inspired O2 Tidal Volume PEEP Pressure (ins/psv/peep) Critical Value Sodium Potassium Chloride Carbon Dioxide Anion Gap BUN Creatinine Est GFR ( Amer) Est GFR (Non-Af Amer) BUN/Creatinine Ratio Glucose POC Glucose Whole Bld Lactic Acid Calcium Total Bilirubin AST ALT Alkaline Phosphatase Lactate Dehydrogenase Troponin I B-Natriuretic Peptide Total Protein Albumin Globulin Albumin/Globulin Ratio TSH 63.34 H 10/21/17 10/21/17 05:30 05:31 WBC RBC Hgb Hct MCV MCH MCHC Differential RDW Plt Count MPV Add Manual Diff Band Neutrophils % Neutrophils (Manual) Lymphocytes Monocytes Eosinophils Metamyelocytes Myelocytes Platelet Estimate PT INR PTT (Actin FS) D-Dimer Specimen Source Arterial Sample Site Right Radial pH 7.46 H pCO2 56.0 H* pO2 72.0 L HCO3 35.6 H Base Excess 13.7 H O2 Saturation 95.0 Golden Test Positive Vent Rate NA Inspired O2 28 Tidal Volume NA PEEP NA Pressure (ins/psv/peep) NA Critical Value SC Sodium Potassium Chloride Carbon Dioxide Anion Gap BUN Creatinine Est GFR ( Amer) Est GFR (Non-Af Amer) BUN/Creatinine Ratio Glucose POC Glucose Whole Bld Lactic Acid Calcium Total Bilirubin AST ALT Alkaline Phosphatase Lactate Dehydrogenase 377 H Troponin I B-Natriuretic Peptide Total Protein Albumin Globulin Albumin/Globulin Ratio TSH - Assessment Assessment: Shortness of breath leukocytosis hypothyroidism CVA multiple myeloma COPD CHF cellulitis lower ext. depression GERD hyperlipidemia - Plan Plan: will admit to telemetry gentle hydration ID consult pulmonary consult psychaitric consult endocrinology consult repeat CBC, CMP tomorrow AM doppler US venous LE start levothyroxine 50mcg daily restart home meds
[2017-10-21] MEDS ORDERED: Potassium Chloride 40 MEQ, Lidocaine 1% 20mL Vial 25 MG in Sodium Chloride 0.9% 250 ML IV ONE (11:00)
[2017-10-21] MEDS: Fluticasone Propionate Nasal 1 SPR SPR NS SCH (11:00)
[2017-10-21] MEDS: cefTRIAXone 1 GM in Sodium Chloride 0.9% 50 ML IV SCH (11:41)
--- NOTE | 2017-10-21 12:11 | Consultation ---
DATE OF CONSULTATION: 10/21/2017 HEMATOLOGY ONCOLOGY CONSULTATION REFERRING PHYSICIAN: Dr. Marie. REASON FOR CONSULTATION: Persistent leukocytosis. HISTORY OF PRESENT ILLNESS: The patient is a 56-year-old female who was admitted with shortness of breath and with weakness associated with cough. She was found to have persistent elevated white blood cell count in addition to multiple other abnormalities including elevated platelet, hemoglobin, macrocytic index; therefore, I was asked to evaluate. PAST MEDICAL HISTORY: Congestive heart failure, dyslipidemia, COPD, CVA, depression, hypothyroidism, history of chronic myelogenous leukemia. There is no history of myeloma. PAST SURGICAL HISTORY: Abdominal surgery with scar of unclear nature. MEDICATIONS: Reviewed. The patient stated that she was taking Gleevec initially for 2 years and that did not work and then she was started on nilotinib for 6 years and nilotinib was discontinued last year because of insurance issues. She has not been on treatment for the past 9 months. SOCIAL HISTORY: Resides in a nursing facility. PHYSICAL EXAMINATION: GENERAL: She is awake, depressed, irritable, complaining of mouth sores and/or ulcers in the oral mucosa. NECK: No lymphadenopathy. CHEST: Poor respiratory effort, scattered rhonchi. ABDOMEN: Soft. Scars of previous surgery. EXTREMITIES: Erythema in the kristian-ankle and pretibial areas bilaterally, more on the right than left. LABORATORY DATA: Blood work was reviewed. White count 32.7, hemoglobin 13.2, platelets 620, increased basophils metamyelocytes and monocytes, potassium 3.3, creatinine 0.7. Liver function is normal. TSH 63. ASSESSMENT: 1. Elevated white count and platelets with increased monocytes, basophils, metamyelocytes, most suggestive of chronic myelogenous leukemia. The patient had a history of chronic myelogenous leukemia, but no records to confirm that. I will obtain quantitative PCR for [place] chromosome translocation for confirmation and the quantification of the chromosome. 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 2. Oral ulcers. I will administer Diflucan and mouth hygiene. 3. Cellulitis, on antibiotics. 4. Microcytic index secondary to severe hypothyroidism. The patient was started on thyroid hormone supplementation. Thank you, Dr. Marie for the opportunity to participate in the care of this interesting case. JOB# [id number]
[2017-10-21] MEDS: Albuterol/Ipratropium Neb 3 ML AERS HHN SCH ×3 (13:53→19:36)
--- NOTE | 2017-10-21 14:29 | Diagnostic Imaging Report ---
Bilateral lower extremity DVT study HISTORY: Edema COMPARISON: None Technique: Longitudinal and transverse sonographic images of the bilateral lower extremity veins were obtained with doppler analysis. FINDINGS: There is normal compressibility, augmentation and phasicity of the bilateral common femoral, superficial femoral, popliteal, and posterior tibial veins. No thrombus is visualized. IMPRESSION: No evidence of thrombus within the bilateral lower extremity veins.
[2017-10-21] MEDS ORDERED: [UNRECOGNIZED DRUG - OTHER] PO PRN (14:41)
[2017-10-21] MEDS: methylPREDNISolone SS 40 mg Vial IV SCH ×2 (16:00→20:23)
--- NOTE | 2017-10-21 18:32 | Consultation ---
Consult Note - Consult Note Service Date: 10/21/17 Referring Physician: Alex Marie Consult Note: PHYSICIAN Consultation Note: Date of Admission: 10/21/17 Purpose of Consultation: Leukocytosis, cellulitis Chief Complaint: Patient AMBROSIO PARIKH was admitted to [facility] with LEUKOCYTOSIS/ COPD EXACERBATION. History of Present Illness: 56 year female with past medical history of CML, CHF, dyslipidemia, COPD, asthma , CVA, depression, hypothyroidism, admitted to the hospital for shortness of breath and the surgery weakness. This also some cough. On initial evaluation patient's temperature was 96.9F and WBC count was 32,700. Patient was also found to have swelling and redness of both lower extremities worse on the right side. Patient was diagnosed as cellulitis and started on Levaquin. A chest x- ray showed atelectasis less likely infiltrate. ID consult was called for further evaluation and management. Past Medical History: CML, CHF, dyslipidemia, COPD, asthma, CVA, depression, hypothyroidism. Allergies Allergy/AdvReac Type Severity Reaction Status Date / Time iodine Allergy Verified 10/21/17 05:19 ketorolac Allergy Verified 10/21/17 05:19 meperidine Allergy Verified 10/21/17 05:19 NSAIDS (Non-Steroidal Allergy Verified 10/21/17 05:19 Anti-Inflamma tramadol Allergy Verified 10/21/17 05:19 Vital Signs Temp 97.8 F 10/21/17 16:08 Pulse 70 10/21/17 16:08 Resp 17 10/21/17 16:08 BP 130/65 10/21/17 16:08 Pulse Ox 95 10/21/17 16:08 Intake & Output 10/20/17 10/21/17 10/21/17 18:59 06:59 18:59 Weight (lbs) 77.564 kg 77.564 kg Other: Weight Source Patient stated Laboratory Results - last 24 hr 10/21/17 10/21/17 10/21/17 05:00 05:01 05:30 WBC 32.7 H* RBC 3.78 L Hgb 13.2 Hct 40.1 L MCV 106.2 H MCH 34.9 H MCHC Differential 32.9 RDW 17.5 Plt Count 620 H MPV 7.1 Add Manual Diff YES Band Neutrophils % 2 Neutrophils (Manual) 70 Lymphocytes 14 L Monocytes 8 Eosinophils 1 Metamyelocytes 4 H Myelocytes 1 Platelet Estimate ADEQUATE PT INR PTT (Actin FS) D-Dimer Specimen Source Sample Site pH pCO2 pO2 HCO3 Base Excess O2 Saturation Golden Test Vent Rate Inspired O2 Tidal Volume PEEP Pressure (ins/psv/peep) Critical Value Sodium Potassium Chloride Carbon Dioxide Anion Gap BUN Creatinine Est GFR ( Amer) Est GFR (Non-Af Amer) BUN/Creatinine Ratio Glucose POC Glucose 89 Whole Bld Lactic Acid 0.82 Calcium Total Bilirubin AST ALT Alkaline Phosphatase Lactate Dehydrogenase Troponin I B-Natriuretic Peptide Total Protein Albumin Globulin Albumin/Globulin Ratio [facility] 10/21/17 10/21/17 10/21/17 05:30 05:30 05:30 WBC RBC Hgb Hct MCV MCH MCHC Differential RDW Plt Count MPV Add Manual Diff Band Neutrophils % Neutrophils (Manual) Lymphocytes Monocytes Eosinophils Metamyelocytes Myelocytes Platelet Estimate PT INR PTT (Actin FS) D-Dimer Specimen Source Sample Site pH pCO2 pO2 HCO3 Base Excess O2 Saturation Golden Test Vent Rate Inspired O2 Tidal Volume PEEP Pressure (ins/psv/peep) Critical Value Sodium 139 Potassium 3.3 L Chloride 99 Carbon Dioxide 33.0 H Anion Gap 10.3 BUN 14 Creatinine 0.7 Est GFR ( Amer) > 60.0 Est GFR (Non-Af Amer) > 60.0 BUN/Creatinine Ratio 20.0 Glucose 85 POC Glucose Whole Bld Lactic Acid Calcium 9.1 Total Bilirubin 0.5 AST 20 ALT 21 Alkaline Phosphatase 74 Lactate Dehydrogenase Troponin I 0.03 B-Natriuretic Peptide 54.0 Total Protein 6.0 Albumin 3.7 Globulin 2.3 Albumin/Globulin Ratio 1.6 [facility] 10/21/17 10/21/17 10/21/17 05:30 05:30 05:30 WBC RBC Hgb Hct MCV MCH MCHC Differential RDW Plt Count MPV Add Manual Diff Band Neutrophils % Neutrophils (Manual) Lymphocytes Monocytes Eosinophils Metamyelocytes Myelocytes Platelet Estimate PT 9.7 INR 0.93 PTT (Actin FS) 25.0 L D-Dimer 652 H Specimen Source Sample Site pH pCO2 pO2 HCO3 Base Excess O2 Saturation Golden Test Vent Rate Inspired O2 Tidal Volume PEEP Pressure (ins/psv/peep) Critical Value Sodium Potassium Chloride Carbon Dioxide Anion Gap BUN Creatinine Est GFR ( Amer) Est GFR (Non-Af Amer) BUN/Creatinine Ratio Glucose POC Glucose Whole Bld Lactic Acid Calcium Total Bilirubin AST ALT Alkaline Phosphatase Lactate Dehydrogenase Troponin I B-Natriuretic Peptide Total Protein Albumin Globulin Albumin/Globulin Ratio TSH 63.34 H 10/21/17 10/21/17 05:30 05:31 WBC RBC Hgb Hct MCV MCH MCHC Differential RDW Plt Count MPV Add Manual Diff Band Neutrophils % Neutrophils (Manual) Lymphocytes Monocytes Eosinophils Metamyelocytes Myelocytes Platelet Estimate PT INR PTT (Actin FS) D-Dimer Specimen Source Arterial Sample Site Right Radial pH 7.46 H pCO2 56.0 H* pO2 72.0 L HCO3 35.6 H Base Excess 13.7 H O2 Saturation 95.0 Golden Test Positive Vent Rate NA Inspired O2 28 Tidal Volume NA PEEP NA Pressure (ins/psv/peep) NA Critical Value SC Sodium Potassium Chloride Carbon Dioxide Anion Gap BUN Creatinine Est GFR ( Amer) Est GFR (Non-Af Amer) BUN/Creatinine Ratio Glucose POC Glucose Whole Bld Lactic Acid Calcium Total Bilirubin AST ALT Alkaline Phosphatase Lactate Dehydrogenase 377 H Troponin I B-Natriuretic Peptide Total Protein Albumin Globulin Albumin/Globulin Ratio TSH Home Medication Medication Instructions Recorded Type Acetaminophen [Tylenol] 650 mg PO Q6HR PRN 06/22/17 History Albuterol/Ipratropium Neb [Duoneb 3 ml HHN Q6HR 06/22/17 History Neb] Clopidogrel [Plavix] 75 mg PO DAILY 06/22/17 History Escitalopram Oxalate [Lexapro] 30 mg PO HS 06/22/17 History Famotidine 20 mg PO BID 06/22/17 History Loratadine [Claritin] 10 mg PO DAILY 06/22/17 History Losartan Potassium [Cozaar] 50 mg PO DAILY 06/22/17 History Oxycodone HCl 20 mg PO Q6HR PRN 06/22/17 History buPROPion [Wellbutrin] 150 mg PO BID 06/22/17 History fentaNYL 25 mcg/hr [Duragesic 25 25 mcg TD Q72HR 06/22/17 History mcg/hr Tdm Patch] Aspirin [Ecotrin] 81 mg PO DAILY 10/21/17 History Baclofen [Lioresal*] 10 mg PO BID 10/21/17 History Budesonide [Pulmicort] 0.5 mg IH BID 10/21/17 History Docusate Sodium [Colace] 100 mg PO BID 10/21/17 History Fluticasone Propionate Nasal 1 spr NS DAILY 10/21/17 History [Flonase] Oxycodone HCl 20 mg PO Q4HR PRN 10/21/17 History Prednisone [Deltasone] 20 mg PO TID 10/21/17 History Simvastatin [Zocor] 10 mg PO HS 10/21/17 History fentaNYL 25 mcg/hr [Duragesic 25 25 mcg TD Q72HR 10/21/17 History mcg/hr Tdm Patch] Current Medications Generic Name Dose Route Start Last Admin Trade Name Freq PRN Reason Stop Dose Admin Acetaminophen 650 mg 10/21/17 09:06 Tylenol PO 12/20/17 09:05 Q6H PRN Pain (Mild) Albuterol/Ipratropium 3 ml 10/21/17 12:00 10/21/17 13:53 Duoneb Neb [facility] 12/20/17 11:59 3 ml Q6HR SARAH Administration Albuterol/Ipratropium 3 ml 10/21/17 15:00 Duoneb Neb [facility] 12/20/17 14:59 U6HBOES SARAH Aspirin 81 mg 10/21/17 10:00 10/21/17 11:42 Ecotrin PO 12/20/17 09:59 81 mg DAILY SARAH Administration Budesonide 0.5 mg 10/21/17 10:00 Pulmicort N 12/20/17 09:59 BIDRT SARAH Budesonide 0.5 mg 10/21/17 19:00 Pulmicort N 12/20/17 18:59 BIDRT SARAH Bupropion HCl 150 mg 10/21/17 17:00 Wellbutrin PO 12/20/17 16:59 BID [facility] Protocol Clopidogrel Bisulfate 75 mg 10/21/17 10:00 10/21/17 11:41 Plavix PO 12/20/17 09:59 75 mg DAILY SARAH Administration Docusate Sodium 100 mg 10/21/17 17:00 10/21/17 18:03 Colace PO 12/20/17 16:59 100 mg BID SARAH Administration Escitalopram Oxalate 20 mg 10/21/17 21:00 Lexapro PO 12/20/17 20:59 HS SARAH Protocol Famotidine 20 mg 10/21/17 17:00 10/21/17 18:04 Pepcid PO 12/20/17 16:59 20 mg BID SARAH Administration Fentanyl 25 patch 10/21/17 14:00 10/21/17 15:59 Duragesic 25 Mcg/Hr Tdm Patch TD 12/20/17 13:59 1 patch Q72H SARAH Administration Protocol Fluconazole 100 mg 10/21/17 12:30 10/21/17 16:01 Diflucan PO 12/20/17 12:29 100 mg DAILY SARAH Administration Fluticasone Propionate 1 spr 10/21/17 11:00 10/21/17 11:00 Flonase NS 12/20/17 10:59 Not Given DAILY SARAH Sodium Chloride 1,000 mls @ 50 mls/hr 10/21/17 08:08 10/21/17 11:40 Nacl 0.9% IV 12/20/17 08:07 50 mls/hr .Q20H SARAH Administration Levofloxacin 500 mg in 100 mls @ 100 mls/hr 10/22/17 06:00 Levaquin Pb IV 12/21/17 05:59 Q24HR SARAH Ceftriaxone Sodium 1 gm/ 50 mls @ 100 mls/hr 10/21/17 11:00 10/21/17 11:41 Sodium Chloride IV 12/20/17 10:59 100 mls/hr Q24H SARAH Administration Levothyroxine Sodium 0.05 mg 10/22/17 07:30 Synthroid PO 12/21/17 07:29 QDAC SARAH Lidocaine HCl 15 ml 10/21/17 11:41 10/21/17 16:01 Xylocaine Viscous 2% PO 12/20/17 11:40 15 ml TID PRN Administration mouth pain Loratadine 10 mg 10/21/17 11:00 10/21/17 11:42 Claritin PO 12/20/17 10:59 10 mg DAILY SARAH Administration Losartan Potassium 50 mg 10/21/17 11:00 10/21/17 11:44 Cozaar PO 12/20/17 10:59 50 mg DAILY SARAH Administration Methylprednisolone Sodium Succinate 40 mg 10/21/17 14:30 10/21/17 16:00 Solu-Medrol IV 12/20/17 14:29 40 mg Q8HR SARAH Administration Miscellaneous 1 tab 10/21/17 14:41 Misc Oral Tab PO 12/20/17 14:40 QID PRN SORE MOUTH Oxycodone HCl 20 mg 10/21/17 09:06 10/21/17 18:03 Oxycontin PO 12/20/17 09:05 20 mg Q4H PRN Administration Pain (Severe) Simvastatin 10 mg 10/21/17 21:00 Zocor PO 12/20/17 20:59 HS SARAH Protocol Trazodone HCl 25 mg 10/21/17 16:58 Desyrel PO 12/20/17 20:59 HS PRN Insomnia Protocol Review of Systems: A 12 point ROS was reviewed with the pertinent positive and negatives noted in the HPI. Social History Smoking Status Former smoker Family Medical History Family Medical History Start: 10/21/17 08: 52 Freq: ONCE Status: Active Protocol: Document 10/21/17 10:00 RADHA (Rec: 10/21/17 15:11 RADHA [id number]) Family Medical History Mother History Unknown Yes Physical Exam: General: Comfortable, not in acute distress. HEENT: Head: Normocephalic, atraumatic. Oral cavity: Moist, pink tongue. Eyes eyes: Pallor is present icterus. Pupil PERRLA. EOMI. Neck: Supple, no JVD noted to be taken with minerals. Cardio: S1 and S2 within normal with regular rhythm no murmur or gallop Respiratory: Vesicular breath sound. No crackles or wheezing. Abdominal: Soft, nontender nondistended bowel sounds present Genital/Urinary: Deferred. Extremities: No sinus no clubbing patient has edema of both Increased. Patient has Neurological: Alert, awake, oriented 3. Assessment: 1. Cellulitis of right leg.. 2. COPD exacerbation. 3. Leukocytosis related to CML and prednisone. 4. Hypothyroidism 5. Depression. 6. History of CHF, 7. CML. Plan: Start vancomycin IV. Continue Levaquin. Thank you, Dr. Marie, for involving me in taking care of this patient Signed, Chris Rodriguez M.D. [id number]
[2017-10-21] MEDS: Budesonide 0.5 Mg/2 mL Ud HHN SCH ×2 (19:35→19:36)
--- NOTE | 2017-10-21 23:49 | Consultation ---
DATE OF CONSULTATION: 10/21/2017 PULMONARY/CRITICAL CARE CONSULTATION NOTE REASON FOR CONSULTATION: Help the patient Shortness of breath. HISTORY OF PRESENT ILLNESS: This is a 56-year-old female, lives in [facility] for about 6 months because of "severe disability", has a history of chronic bronchial asthma and she is also aspirin sensitive. The patient was brought to the ER because of increasingly shortness of breath, some coughing and wheezing. Subsequently, the patient was admitted up here for further care and necessary treatment. The patient has been coughing on and off, had some wheezing. No chest pain, very minimal to no sputum production. Denied of any swelling of the legs and has been significant issues with asthma for the last couple of years and has been in a local convalescent home for that problem. PAST MEDICAL HISTORY: History of chronic bronchial asthma, aspirin sensitive, history of CVA, history of multiple myeloma, history of gastroesophageal reflux disease, history of hypertension and also history of chronic pain issues. Also chronic ulceration of the legs. CURRENT MEDICATION: Lexapro, famotidine, Claritin, oxycodone, bupropion, and baclofen, not too sure why she is getting aspirin and also prednisone 20 mg t.i.d. and also fentanyl patch. PHYSICAL EXAMINATION: VITAL SIGNS: The patient's recorded vitals: Temperature is 97.0, blood pressure is 101/66, saturation is 94 on 2 liters per minute. HEENT: Examination of the head is essentially unremarkable. Pupils appear to be equal and reacting to light. Conjunctivae are slightly pallor. Oral cavity shows some ulceration, otherwise unremarkable. Small oropharyngeal opening. NECK: No nodes in the neck could be palpated. CHEST: Shows clear with diminished air entry with scattered wheezing. HEART: Distant. ABDOMEN: Soft, nontender. EXTREMITIES: Shows some trace of peripheral edema. There is a significant ecchymotic areas on both the upper and lower extremity. LABORATORY DATA: White count is 32.7, hemoglobin 13 grams and ABG shows compensated respiratory acidemia and a chest x-ray shows rotated film left upper lobe could not be seen because as the head is tilting on that side. ASSESSMENT: 1. The patient has acute exacerbation of bronchial asthma, aspirin sensitive with a very strong family history of bronchial asthma among the family members as well. 2. Possibly suspect sleep apnea syndrome for her chronic pain, question secondary to multiple myeloma or dependency. PLANS AND SUGGESTIONS: We will give aggressive inhalation treatment with beta agonist as well as we will give some Atrovent. Also, we will give Pulmicort. We will give limited dose of steroid and we will see how she does in the next 24-48 hours and go from there. Also, follow through chest x-ray, antibiotic, etc. and go from there. JOB# [id number]
--- NOTE | 2017-10-22 02:57 | Consultation ---
DATE OF CONSULTATION: 10/21/2017 HISTORY OF PRESENT ILLNESS: A 56-year-old female brought in from care home to the ER for evaluation of shortness of breath for 1 hour. The patient was not talking as much as her usual state. The patient was noted to be drowsy at that time was screaming that she wanted oxygen. On [id number], the patient oriented to name, place, situation, year, month, day of the week. Denies depression. States that she is upset, upset mostly to be in the hospital, some bouts of sadness because of her medical condition, but denying any hopeless thoughts. In fact, she is hopeful and motivated and optimistic to get better. Complains of poor sleep, okay appetite. PAST PSYCHIATRIC HISTORY: Depression in the past. FAMILY HISTORY: Noncontributory. MEDICATIONS: Noted. SOCIAL HISTORY: The patient was born in [place] and , 3 children. The patient currently living in a rehab facility, had been living alone, but notes because of her breathing difficulties, she needed more supervision. MENTAL STATUS EXAMINATION: Stated age, fair eye contact. Speech within normal limits. Mood "okay." Affect constricted. Thought processes were linear. No SI, no HI, no overt psychotic symptoms. Insight and judgment appear reasonable. PROVISIONAL DIAGNOSIS: Mood, unspecified; major depression, mild; recurrent, no psychosis; anxiety, unspecified. Under medical, please see full H and P. RECOMMENDATIONS AND PLAN: The patient mostly complaining of mild anxiety, mild depressive symptoms, currently on medications, indicated for depression including Wellbutrin and Lexapro. We will lower Lexapro dosing down to 20 mg, which is the FDA approved maximum dose for major depressive disorder. We will initiate p.r.n. medications for sleep. No 5150 criteria. [facility]# [id number]
[2017-10-22] MEDS: methylPREDNISolone SS 40 mg Vial IV SCH ×5 (04:55→21:15)
[2017-10-22] MEDS: Levofloxacin 500mg/100mL 500 MG/100 ML BAG IV SCH (05:31)
[2017-10-22 05:46] LABS: EOSINOPHILE ABSOLUTE 0.1 Th/cmm (0.1-0.4); HEMATOCRIT 40.7 % (41.0-60); HEMOGLOBIN 13.4 gm/dL (12-16); LYMPHOCYTE ABSOLUTE 0.8 Th/cmm (1.5-3.0); MEAN PLATELET VOLUME 7.8 fl; MONOCYTE ABSOLUTE 0.3 Th/cmm (0.3-1.0); NEUTROPHILE ABSOLUTE 23.5 Th/cmm (1.8-8.0); PLATELET COUNT 496 Th/cmm (150-400); RED BLOOD COUNT 3.83 Mil/cmm (3.80-5.10); RED CELL DISTRIBUTION WIDTH 16.9 % (11.5-20.0)
[2017-10-22] MEDS: Albuterol/Ipratropium Neb 3 ML AERS HHN SCH ×5 (05:50→19:02)
[2017-10-22 05:51] LABS: WHITE BLOOD COUNT 24.7 Th/cmm (4.8-10.8)
[2017-10-22 06:01] LABS: ALB/GLOB RATIO 1.3 (1.0-1.8); ALBUMIN 3.3 gm/dL (3.7-5.3); ALKALINE PHOSPHATASE 66 U/L (34-104); ANION GAP 12.4 (7.0-16.0); BILIRUBIN,TOTAL 0.6 mg/dL (0.3-1.0); BUN - UREA NITROGEN 11 mg/dL (7-25); CALCIUM SERUM 8.7 mg/dL (8.6-10.3); CARBON DIOXIDE 26.8 mEq/L (21.0-31.0); CHLORIDE 100 mEq/L (98-107); CREATININE - SERUM 0.7 mg/dL (0.6-1.2); GFR AFRICAN-AMERICAN > 60.0 ml/min (>90); GFR NON AFRICAN-AMERICAN > 60.0 ml/min; GLUCOSE 104 mg/dL (70-105); POTASSIUM SERUM 4.2 mEq/L (3.5-5.1); SGOT 19 U/L (13-39); SGPT/ALT 18 U/L (7-52); SODIUM SERUM 135 mEq/L (136-145); TOTAL PROTEIN,SERUM 5.8 gm/dL (6.0-8.3)
[2017-10-22] MEDS: Levothyroxine 0.05 Mg Tab PO SCH (06:33)
[2017-10-22] MEDS: Budesonide 0.5 Mg/2 mL Ud HHN SCH ×2 (06:45→19:19)
[2017-10-22 07:04] LABS: BAND NEUTROPHILE 8 % (0-10); LYMPHOCYTE 4 % (20-50); METAMYELOCYTE 4 % (0-0); MONOCYTE 2 % (2-10); MYELOCYTE 3 %; NEUTROPHILS 79 % (40-80); PLATELET ESTIMATE INCREASED PLATELETS (NORMAL)
[2017-10-22 07:07] LABS: MEAN CELL VOLUME 106.2 fl (81-100)
--- NOTE | 2017-10-22 08:17 | Diagnostic Imaging Report ---
Portable chest x-ray HISTORY: Shortness of breath The overall heart size is difficult to assess with portable technique in a poor inspiration. Atherosclerotic calcination seen in the aorta. Linear densities are noted in the right and to a greater degree left lower lobes unchanged dating back to June 28, 2017 consistent with scarring. No acute pulmonary parenchymal processes. IMPRESSION: 1. No acute abnormalities 2. Atherosclerotic vascular changes 3. Linear densities within the lower lobes of the lungs consistent with scarring
--- NOTE | 2017-10-22 08:36 | General Progress Note ---
Subjective - Review of Systems Service Date: 10/22/17 Subjective: 56 y/o female admitted for leukocytosis, h/o CML, Asthma, GERD, CVA, Hyperlipidemia, HTN. Depression, Anxiety d/o. No acute distress. Afebrile. Objective - Results Result Diagrams: 10/22/17 05:05 10/22/17 05:05 Recent Labs: Laboratory Last Values WBC 24.7 Th/cmm (4.8-10.8) H* D 10/22/17 05:05 RBC 3.83 Mil/cmm (3.80-5.10) 10/22/17 05:05 Hgb 13.4 gm/dL (12-16) 10/22/17 05:05 Hct 40.7 % (41.0-60) L 10/22/17 05:05 MCV 106.2 fl (81-100) H 10/22/17 05:05 MCH 35.0 pg (27.0-31.0) H 10/22/17 05:05 MCHC Differential 33.0 pg (28.0-36.0) 10/22/17 05:05 RDW 16.9 % (11.5-20.0) 10/22/17 05:05 Plt Count 496 Th/cmm (150-400) H 10/22/17 05:05 MPV 7.8 fl 10/22/17 05:05 Add Manual Diff YES 10/22/17 05:05 Band Neutrophils % 8 % (0-10) 10/22/17 05:05 Neutrophils (Manual) 79 % (40-80) 10/22/17 05:05 Lymphocytes 4 % (20-50) L 10/22/17 05:05 Monocytes 2 % (2-10) 10/22/17 05:05 Eosinophils 1 % (0-5) 10/21/17 05:30 Metamyelocytes 4 % (0-0) H 10/22/17 05:05 Myelocytes 3 % 10/22/17 05:05 Platelet Estimate INCREASED PLATELETS (NORMAL) 10/22/17 05:05 Macrocytosis 1+ 10/22/17 05:05 PT 9.7 SECONDS (9.5-11.5) 10/21/17 05:30 INR 0.93 (0.5-1.4) 10/21/17 05:30 PTT (Actin FS) 25.0 SECONDS (26.0-38.0) L 10/21/17 05:30 D-Dimer 652 ng/mL (100-400) H 10/21/17 05:30 Specimen Source Arterial 10/21/17 05:31 Sample Site Right Radial 10/21/17 05:31 pH 7.46 (7.35-7.45) H 10/21/17 05:31 pCO2 56.0 mmHg (35.0-45.0) H* 10/21/17 05:31 pO2 72.0 mmHg (80.0-100.0) L 10/21/17 05:31 HCO3 35.6 mEq/L (20.0-26.0) H 10/21/17 05:31 Base Excess 13.7 mEq/L (-3.0-3.0) H 10/21/17 05:31 O2 Saturation 95.0 % (92.0-100.0) 10/21/17 05:31 Golden Test Positive 10/21/17 05:31 Vent Rate NA 10/21/17 05:31 Inspired O2 28 10/21/17 05:31 Tidal Volume NA 10/21/17 05:31 PEEP NA 10/21/17 05:31 Pressure (ins/psv/peep) NA 10/21/17 05:31 Critical Value SC 10/21/17 05:31 Sodium 135 mEq/L (136-145) L 10/22/17 05:05 Potassium 4.2 mEq/L (3.5-5.1) 10/22/17 05:05 Chloride 100 mEq/L (98-107) 10/22/17 05:05 Carbon Dioxide 26.8 mEq/L (21.0-31.0) 10/22/17 05:05 Anion Gap 12.4 (7.0-16.0) 10/22/17 05:05 BUN 11 mg/dL (7-25) 10/22/17 05:05 Creatinine 0.7 mg/dL (0.6-1.2) 10/22/17 05:05 Est GFR ( Amer) > 60.0 ml/min (>90) 10/22/17 05:05 Est GFR (Non-Af Amer) > 60.0 ml/min 09/06/18 05:05 BUN/Creatinine Ratio 15.7 10/22/17 05:05 Glucose 104 mg/dL (70-105) 10/22/17 05:05 POC Glucose 89 MG/DL (70 - 105) 10/21/17 05:01 Whole Bld Lactic Acid 0.82 mmol/L (0.60-1.99) 10/21/17 05:00 Calcium 8.7 mg/dL (8.6-10.3) 10/22/17 05:05 Total Bilirubin 0.6 mg/dL (0.3-1.0) 10/22/17 05:05 AST 19 U/L (13-39) 10/22/17 05:05 ALT 18 U/L (7-52) 10/22/17 05:05 Alkaline Phosphatase 66 U/L (34-104) 10/22/17 05:05 Lactate Dehydrogenase 377 U/L (140-271) H 10/21/17 05:30 Troponin I 0.03 ng/mL (0.01-0.05) 10/21/17 05:30 B-Natriuretic Peptide 54.0 pg/mL (5.0-100.0) 10/21/17 05:30 Total Protein 5.8 gm/dL (6.0-8.3) L 10/22/17 05:05 Albumin 3.3 gm/dL (3.7-5.3) L 10/22/17 05:05 Globulin 2.5 gm/dL 10/22/17 05:05 Albumin/Globulin Ratio 1.3 (1.0-1.8) 10/22/17 05:05 TSH 63.34 uIU/ml (0.34-5.60) H 10/21/17 05:30 - Physical Exam Vitals and I&O: Vital Signs Temp 96 F 10/22/17 04:00 Pulse 90 10/22/17 06:46 Resp 22 10/22/17 06:46 BP 108/70 10/22/17 04:00 Pulse Ox 94 10/22/17 06:46 Intake & Output 10/21/17 10/22/17 10/22/17 18:59 06:59 18:59 Intake Total 430 Balance 430 Weight (lbs) 64.682 kg 65.091 kg Intake: Oral 430 Other: # Voids 3 # Bowel Movements 0 0 Weight Source Bedscale Bedscale Active Medications: Current Medications Acetaminophen (Tylenol) 650 mg PO Q6H PRN PRN Reason: Pain (Mild) Stop: 12/20/17 09:05 Albuterol/Ipratropium (Duoneb Neb) 3 ml HHN Q6HR [facility] Stop: 12/20/17 11:59 Last Admin: 10/22/17 05:50 Dose: 3 ml Albuterol/Ipratropium (Duoneb Neb) 3 ml HHN [id number] [facility] Stop: 12/20/17 14:59 Last Admin: 10/21/17 19:35 Dose: 3 ml Aspirin (Ecotrin) 81 mg PO DAILY [facility] Stop: 12/20/17 09:59 Last Admin: 10/21/17 11:42 Dose: 81 mg Budesonide (Pulmicort) 0.5 mg HHN BIDRT [facility] Stop: 12/20/17 09:59 Last Admin: 10/22/17 06:45 Dose: 0.5 mg Budesonide (Pulmicort) 0.5 mg HHN BIDRT [facility] Stop: 12/20/17 18:59 Last Admin: 10/21/17 19:36 Dose: Not Given Bupropion HCl (Wellbutrin) 150 mg PO BID [facility]; Protocol Stop: 12/20/17 16:59 Clopidogrel Bisulfate (Plavix) 75 mg PO DAILY [facility] Stop: 12/20/17 09:59 Last Admin: 10/21/17 11:41 Dose: 75 mg Docusate Sodium (Colace) 100 mg PO BID [facility] Stop: 12/20/17 16:59 Last Admin: 10/21/17 18:03 Dose: 100 mg Escitalopram Oxalate (Lexapro) 20 mg PO HS [facility]; Protocol Stop: 12/20/17 20:59 Famotidine (Pepcid) 20 mg PO BID [facility] Stop: 12/20/17 16:59 Last Admin: 10/21/17 18:04 Dose: 20 mg Fentanyl (Duragesic 25 Mcg/Hr Tdm Patch) 25 patch TD Q72H [facility]; Protocol Stop: 12/20/17 13:59 Last Admin: 10/21/17 15:59 Dose: 1 patch Fluconazole (Diflucan) 100 mg PO DAILY [facility] Stop: 12/20/17 12:29 Last Admin: 10/21/17 16:01 Dose: 100 mg Fluticasone Propionate (Flonase) 1 spr NS DAILY [facility] Stop: 12/20/17 10:59 Last Admin: 10/21/17 11:00 Dose: Not Given Sodium Chloride (Nacl 0.9%) 1,000 mls @ 50 mls/hr IV .Q20H [facility] Stop: 12/20/17 08:07 Last Admin: 10/21/17 11:40 Dose: 50 mls/hr Levofloxacin (Levaquin Pb) 500 mg in 100 mls @ 100 mls/hr IV Q24HR [facility] Stop: 12/21/17 05:59 Last Admin: 10/22/17 05:31 Dose: 100 mls/hr Ceftriaxone Sodium 1 gm/ (Sodium Chloride) 50 mls @ 100 mls/hr IV Q24H [facility] Stop: 12/20/17 10:59 Last Admin: 10/21/17 11:41 Dose: 100 mls/hr Vancomycin HCl 1 gm/ Dextrose 250 mls @ 165 mls/hr IV Q12HR [facility]; Protocol Stop: 12/20/17 20:59 Last Admin: 10/21/17 23:07 Dose: 165 mls/hr Levothyroxine Sodium (Synthroid) 0.05 mg PO QDAC [facility] Stop: 12/21/17 07:29 Last Admin: 10/22/17 06:33 Dose: 0.05 mg Lidocaine HCl (Xylocaine Viscous 2%) 15 ml PO TID PRN PRN Reason: mouth pain Stop: 12/20/17 11:40 Last Admin: 10/21/17 20:22 Dose: 15 ml Loratadine (Claritin) 10 mg PO DAILY [facility] Stop: 12/20/17 10:59 Last Admin: 10/21/17 11:42 Dose: 10 mg Losartan Potassium (Cozaar) 50 mg PO DAILY [facility] Stop: 12/20/17 10:59 Last Admin: 10/21/17 11:44 Dose: 50 mg Methylprednisolone Sodium Succinate (Solu-Medrol) 40 mg IV Q8HR [facility] Stop: 12/20/17 14:29 Last Admin: 10/22/17 04:55 Dose: 40 mg Miscellaneous (Misc Oral Tab) 1 tab PO QID PRN PRN Reason: SORE MOUTH Stop: 12/20/17 14:40 Miscellaneous (Vancomycin Iv Per Pharmacy) 1 ea MC PRN PRN PRN Reason: PROTOCOL Stop: 12/20/17 18:31 Oxycodone HCl (Oxycontin) 20 mg PO Q4H PRN PRN Reason: Pain (Severe) Stop: 12/20/17 09:05 Last Admin: 10/22/17 03:16 Dose: 20 mg Simvastatin (Zocor) 10 mg PO HS [facility]; Protocol Stop: 12/20/17 20:59 Last Admin: 10/21/17 20:23 Dose: 10 mg Trazodone HCl (Desyrel) 25 mg PO HS PRN; Protocol PRN Reason: Insomnia Stop: 12/20/17 20:59 General: Alert, No acute distress HEENT: Atraumatic, PERRLA, EOMI Neck: Supple, no JVD Cardiovascular: Regular rate, Normal S1, Normal S2 Lungs: Clear to auscultation Abdomen: Bowel sounds Extremities: Edema (+1), no Clubbing, no Cyanosis Assessment/Plan - Assessment Assessment: Shortness of breath leukocytosis hypothyroidism CVA h/o CML COPD CHF cellulitis lower ext. depression GERD hyperlipidemia - Plan Plan: will admit to telemetry gentle hydration ID consult will continue IV antibiotics pulmonary consult psychaitric consult endocrinology consult doppler US venous LE negative start levothyroxine 50mcg daily restart home meds
[2017-10-22] MEDS: Fluticasone Propionate Nasal 1 SPR SPR NS SCH (08:54)
[2017-10-22] MEDS: cefTRIAXone 1 GM in Sodium Chloride 0.9% 50 ML IV SCH (11:52)
[2017-10-22] MEDS ORDERED: Probiotic Screen MC PRN (17:19)
--- NOTE | 2017-10-22 17:53 | General Progress Note ---
Subjective - Review of Systems Service Date: 10/22/17 Objective - Results Result Diagrams: 10/22/17 05:05 10/22/17 05:05 Recent Labs: Laboratory Last Values WBC 24.7 Th/cmm (4.8-10.8) H* D 10/22/17 05:05 RBC 3.83 Mil/cmm (3.80-5.10) 10/22/17 05:05 Hgb 13.4 gm/dL (12-16) 10/22/17 05:05 Hct 40.7 % (41.0-60) L 10/22/17 05:05 MCV 106.2 fl (81-100) H 10/22/17 05:05 MCH 35.0 pg (27.0-31.0) H 10/22/17 05:05 MCHC Differential 33.0 pg (28.0-36.0) 10/22/17 05:05 RDW 16.9 % (11.5-20.0) 10/22/17 05:05 Plt Count 496 Th/cmm (150-400) H 10/22/17 05:05 MPV 7.8 fl 10/22/17 05:05 Add Manual Diff YES 10/22/17 05:05 Band Neutrophils % 8 % (0-10) 10/22/17 05:05 Neutrophils (Manual) 79 % (40-80) 10/22/17 05:05 Lymphocytes 4 % (20-50) L 10/22/17 05:05 Monocytes 2 % (2-10) 10/22/17 05:05 Eosinophils 1 % (0-5) 10/21/17 05:30 Metamyelocytes 4 % (0-0) H 10/22/17 05:05 Myelocytes 3 % 10/22/17 05:05 Platelet Estimate INCREASED PLATELETS (NORMAL) 10/22/17 05:05 Macrocytosis 1+ 10/22/17 05:05 PT 9.7 SECONDS (9.5-11.5) 10/21/17 05:30 INR 0.93 (0.5-1.4) 10/21/17 05:30 PTT (Actin FS) 25.0 SECONDS (26.0-38.0) L 10/21/17 05:30 D-Dimer 652 ng/mL (100-400) H 10/21/17 05:30 Specimen Source Arterial 10/21/17 05:31 Sample Site Right Radial 10/21/17 05:31 pH 7.46 (7.35-7.45) H 10/21/17 05:31 pCO2 56.0 mmHg (35.0-45.0) H* 10/21/17 05:31 pO2 72.0 mmHg (80.0-100.0) L 10/21/17 05:31 HCO3 35.6 mEq/L (20.0-26.0) H 10/21/17 05:31 Base Excess 13.7 mEq/L (-3.0-3.0) H 10/21/17 05:31 O2 Saturation 95.0 % (92.0-100.0) 10/21/17 05:31 Golden Test Positive 10/21/17 05:31 Vent Rate NA 10/21/17 05:31 Inspired O2 28 10/21/17 05:31 Tidal Volume NA 10/21/17 05:31 PEEP NA 10/21/17 05:31 Pressure (ins/psv/peep) NA 10/21/17 05:31 Critical Value SC 10/21/17 05:31 Sodium 135 mEq/L (136-145) L 10/22/17 05:05 Potassium 4.2 mEq/L (3.5-5.1) 10/22/17 05:05 Chloride 100 mEq/L (98-107) 10/22/17 05:05 Carbon Dioxide 26.8 mEq/L (21.0-31.0) 10/22/17 05:05 Anion Gap 12.4 (7.0-16.0) 10/22/17 05:05 BUN 11 mg/dL (7-25) 10/22/17 05:05 Creatinine 0.7 mg/dL (0.6-1.2) 10/22/17 05:05 Est GFR ( Amer) > 60.0 ml/min (>90) 10/22/17 05:05 Est GFR (Non-Af Amer) > 60.0 ml/min 10/22/17 05:05 BUN/Creatinine Ratio 15.7 10/22/17 05:05 Glucose 104 mg/dL (70-105) 10/22/17 05:05 POC Glucose 89 MG/DL (70 - 105) 10/21/17 05:01 Whole Bld Lactic Acid 0.82 mmol/L (0.60-1.99) 10/21/17 05:00 Calcium 8.7 mg/dL (8.6-10.3) 10/22/17 05:05 Total Bilirubin 0.6 mg/dL (0.3-1.0) 10/22/17 05:05 AST 19 U/L (13-39) 10/22/17 05:05 ALT 18 U/L (7-52) 10/22/17 05:05 Alkaline Phosphatase 66 U/L (34-104) 10/22/17 05:05 Lactate Dehydrogenase 377 U/L (140-271) H 10/21/17 05:30 Troponin I 0.03 ng/mL (0.01-0.05) 10/21/17 05:30 B-Natriuretic Peptide 54.0 pg/mL (5.0-100.0) 10/21/17 05:30 Total Protein 5.8 gm/dL (6.0-8.3) L 10/22/17 05:05 Albumin 3.3 gm/dL (3.7-5.3) L 10/22/17 05:05 Globulin 2.5 gm/dL 10/22/17 05:05 Albumin/Globulin Ratio 1.3 (1.0-1.8) 10/22/17 05:05 TSH 63.34 uIU/ml (0.34-5.60) H 10/21/17 05:30 - Physical Exam Vitals and I&O: Vital Signs Temp 96.2 F 10/22/17 12:00 Pulse 102 10/22/17 14:14 Resp 22 10/22/17 14:14 BP 116/76 10/22/17 12:00 Pulse Ox 99 10/22/17 14:14 Intake & Output 10/21/17 10/22/17 10/22/17 18:59 06:59 18:59 Intake Total 480 250 300 Balance 480 250 300 Weight (lbs) 64.682 kg 65.091 kg Intake: Intake, IV Amount 50 250 300 Vancomycin HCl 1 gm In 250 250 Dextrose 5% 250 ml @ 165 mls/hr IV Q12HR [facility] Rx#: [id number] cefTRIAXone 1 gm In 50 50 Sodium Chloride 0.9% 50 ml @ 100 mls/hr IV Q24H [facility] Rx#:[id number] Oral 430 Other: # Voids 3 # Bowel Movements 0 0 Weight Source Bedscale Bedscale Active Medications: Current Medications Acetaminophen (Tylenol) 650 mg PO Q6H PRN PRN Reason: Pain (Mild) Stop: 12/20/17 09:05 Albuterol/Ipratropium (Duoneb Neb) 3 ml HHN Q6HR [facility] Stop: 12/20/17 11:59 Last Admin: 10/22/17 05:50 Dose: 3 ml Albuterol/Ipratropium (Duoneb Neb) 3 ml HHN [id number] [facility] Stop: 12/20/17 14:59 Last Admin: 10/22/17 14:13 Dose: 3 ml Aspirin (Ecotrin) 81 mg PO DAILY [facility] Stop: 12/20/17 09:59 Last Admin: 10/22/17 08:53 Dose: 81 mg Budesonide (Pulmicort) 0.5 mg HHN BIDRT [facility] Stop: 12/20/17 09:59 Last Admin: 10/22/17 06:45 Dose: 0.5 mg Budesonide (Pulmicort) 0.5 mg HHN BIDRT [facility] Stop: 12/20/17 18:59 Last Admin: 10/21/17 19:36 Dose: Not Given Bupropion HCl (Wellbutrin) 150 mg PO BID [facility]; Protocol Stop: 12/20/17 16:59 Last Admin: 10/22/17 17:37 Dose: 150 mg Clopidogrel Bisulfate (Plavix) 75 mg PO DAILY [facility] Stop: 12/20/17 09:59 Last Admin: 10/22/17 08:53 Dose: 75 mg Docusate Sodium (Colace) 100 mg PO BID [facility] Stop: 12/20/17 16:59 Last Admin: 10/22/17 08:53 Dose: 100 mg Escitalopram Oxalate (Lexapro) 20 mg PO HS [facility]; Protocol Stop: 12/20/17 20:59 Famotidine (Pepcid) 20 mg PO BID [facility] Stop: 12/20/17 16:59 Last Admin: 10/22/17 17:38 Dose: 20 mg Fentanyl (Duragesic 25 Mcg/Hr Tdm Patch) 25 patch TD Q72H [facility]; Protocol Stop: 12/20/17 13:59 Last Admin: 10/21/17 15:59 Dose: 1 patch Fluconazole (Diflucan) 100 mg PO DAILY [facility] Stop: 12/20/17 12:29 Last Admin: 10/22/17 08:53 Dose: 100 mg Fluticasone Propionate (Flonase) 1 spr NS DAILY [facility] Stop: 12/20/17 10:59 Last Admin: 10/22/17 08:54 Dose: Not Given Sodium Chloride (Nacl 0.9%) 1,000 mls @ 50 mls/hr IV .Q20H [facility] Stop: 12/20/17 08:07 Last Admin: 10/21/17 11:40 Dose: 50 mls/hr Levofloxacin (Levaquin Pb) 500 mg in 100 mls @ 100 mls/hr IV Q24HR [facility] Stop: 12/21/17 05:59 Last Admin: 10/22/17 05:31 Dose: 100 mls/hr Ceftriaxone Sodium 1 gm/ (Sodium Chloride) 50 mls @ 100 mls/hr IV Q24H [facility] Stop: 12/20/17 10:59 Last Infusion: 10/22/17 12:25 Dose: Infused Vancomycin HCl 1 gm/ Dextrose 250 mls @ 165 mls/hr IV Q12HR [facility]; Protocol Stop: 12/20/17 20:59 Last Infusion: 10/22/17 10:25 Dose: Infused Vancomycin HCl 1 gm/ Sodium (Chloride) 250 mls @ 165 mls/hr IV Q12H [facility] Stop: 12/21/17 20:59 Levothyroxine Sodium (Synthroid) 0.05 mg PO QDAC [facility] Stop: 12/21/17 07:29 Last Admin: 10/22/17 06:33 Dose: 0.05 mg Lidocaine HCl (Xylocaine Viscous 2%) 15 ml PO TID PRN PRN Reason: mouth pain Stop: 12/20/17 11:40 Last Admin: 10/22/17 11:55 Dose: 15 ml Loratadine (Claritin) 10 mg PO DAILY [facility] Stop: 12/20/17 10:59 Last Admin: 10/22/17 08:53 Dose: 10 mg Losartan Potassium (Cozaar) 50 mg PO DAILY [facility] Stop: 12/20/17 10:59 Last Admin: 10/22/17 08:54 Dose: 50 mg Methylprednisolone Sodium Succinate (Solu-Medrol) 40 mg IV Q8HR [facility] Stop: 12/20/17 14:29 Last Admin: 10/22/17 14:50 Dose: 40 mg Miscellaneous (Misc Oral Tab) 1 tab PO QID PRN PRN Reason: SORE MOUTH Stop: 12/20/17 14:40 Miscellaneous (Vancomycin Iv Per Pharmacy) 1 ea MC PRN PRN PRN Reason: PROTOCOL Stop: 12/20/17 18:31 Miscellaneous (Probiotic Screen) 1 ea MC PRN PRN PRN Reason: PROTOCOL Stop: 12/21/17 17:18 Oxycodone HCl (Oxycontin) 20 mg PO Q4H PRN PRN Reason: Pain (Severe) Stop: 12/20/17 09:05 Last Admin: 10/22/17 13:57 Dose: 20 mg Simvastatin (Zocor) 10 mg PO HS [facility]; Protocol Stop: 12/20/17 20:59 Last Admin: 10/21/17 20:23 Dose: 10 mg Trazodone HCl (Desyrel) 25 mg PO HS [facility]; Protocol PRN Reason: Insomnia Stop: 12/20/17 20:59 General: Alert, No acute distress HEENT: Atraumatic, PERRLA, EOMI Neck: Supple, no JVD Cardiovascular: Regular rate, Normal S1, Normal S2 Lungs: Clear to auscultation Abdomen: Bowel sounds Extremities: Edema (+1), no Clubbing, no Cyanosis Assessment/Plan - Assessment Assessment: Elevated white count and platelets with increased monocytes, basophils, metamyelocytes, most suggestive of chronic myelogenous leukemia. The patient had a history of chronic myelogenous leukemia, but no records to confirm that. I will obtain quantitative PCR for Perry chromosome translocation for confirmation and the quantification of the chromosome. 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 2. Oral ulcers. I will administer Diflucan and mouth hygiene. 3. Cellulitis, on antibiotics. 4. Microcytic index secondary to severe hypothyroidism. The patient was started on thyroid hormone supplementation.
--- NOTE | 2017-10-22 18:51 | Infectious Disease Prog Note ---
Infectious Disease Subjective - Review of Systems Service Date: 10/22/17 Subjective: cc copd pn hpi- pt cx neg so far ros nmo fevr o/e vss cheat vesucular abd soft ext pulse dx copd pn continue sane abx Infectious Disease Objective - Results Result Diagrams: 10/22/17 05:05 10/22/17 05:05 Recent Labs: Laboratory Last Values WBC 24.7 Th/cmm (4.8-10.8) H* D 10/22/17 05:05 RBC 3.83 Mil/cmm (3.80-5.10) 10/22/17 05:05 Hgb 13.4 gm/dL (12-16) 10/22/17 05:05 Hct 40.7 % (41.0-60) L 10/22/17 05:05 MCV 106.2 fl (81-100) H 10/22/17 05:05 MCH 35.0 pg (27.0-31.0) H 10/22/17 05:05 MCHC Differential 33.0 pg (28.0-36.0) 10/22/17 05:05 RDW 16.9 % (11.5-20.0) 10/22/17 05:05 Plt Count 496 Th/cmm (150-400) H 10/22/17 05:05 MPV 7.8 fl 10/22/17 05:05 Add Manual Diff YES 10/22/17 05:05 Band Neutrophils % 8 % (0-10) 10/22/17 05:05 Neutrophils (Manual) 79 % (40-80) 10/22/17 05:05 Lymphocytes 4 % (20-50) L 10/22/17 05:05 Monocytes 2 % (2-10) 10/22/17 05:05 Eosinophils 1 % (0-5) 10/21/17 05:30 Metamyelocytes 4 % (0-0) H 10/22/17 05:05 Myelocytes 3 % 10/22/17 05:05 Platelet Estimate INCREASED PLATELETS (NORMAL) 10/22/17 05:05 Macrocytosis 1+ 10/22/17 05:05 PT 9.7 SECONDS (9.5-11.5) 10/21/17 05:30 INR 0.93 (0.5-1.4) 09/05/18 05:30 PTT (Actin FS) 25.0 SECONDS (26.0-38.0) L 10/21/17 05:30 D-Dimer 652 ng/mL (100-400) H 10/21/17 05:30 Specimen Source Arterial 10/21/17 05:31 Sample Site Right Radial 10/21/17 05:31 pH 7.46 (7.35-7.45) H 10/21/17 05:31 pCO2 56.0 mmHg (35.0-45.0) H* 10/21/17 05:31 pO2 72.0 mmHg (80.0-100.0) L 10/21/17 05:31 HCO3 35.6 mEq/L (20.0-26.0) H 10/21/17 05:31 Base Excess 13.7 mEq/L (-3.0-3.0) H 10/21/17 05:31 O2 Saturation 95.0 % (92.0-100.0) 10/21/17 05:31 Golden Test Positive 10/21/17 05:31 Vent Rate NA 10/21/17 05:31 Inspired O2 28 10/21/17 05:31 Tidal Volume NA 10/21/17 05:31 PEEP NA 10/21/17 05:31 Pressure (ins/psv/peep) NA 10/21/17 05:31 Critical Value SC 10/21/17 05:31 Sodium 135 mEq/L (136-145) L 10/22/17 05:05 Potassium 4.2 mEq/L (3.5-5.1) 10/22/17 05:05 Chloride 100 mEq/L (98-107) 10/22/17 05:05 Carbon Dioxide 26.8 mEq/L (21.0-31.0) 10/22/17 05:05 Anion Gap 12.4 (7.0-16.0) 10/22/17 05:05 BUN 11 mg/dL (7-25) 10/22/17 05:05 Creatinine 0.7 mg/dL (0.6-1.2) 10/22/17 05:05 Est GFR ( Amer) > 60.0 ml/min (>90) 10/22/17 05:05 Est GFR (Non-Af Amer) > 60.0 ml/min 10/22/17 05:05 BUN/Creatinine Ratio 15.7 10/22/17 05:05 Glucose 104 mg/dL (70-105) 10/22/17 05:05 POC Glucose 89 MG/DL (70 - 105) 10/21/17 05:01 Whole Bld Lactic Acid 0.82 mmol/L (0.60-1.99) 10/21/17 05:00 Calcium 8.7 mg/dL (8.6-10.3) 10/22/17 05:05 Total Bilirubin 0.6 mg/dL (0.3-1.0) 10/22/17 05:05 AST 19 U/L (13-39) 10/22/17 05:05 ALT 18 U/L (7-52) 10/22/17 05:05 Alkaline Phosphatase 66 U/L (34-104) 10/22/17 05:05 Lactate Dehydrogenase 377 U/L (140-271) H 10/21/17 05:30 Troponin I 0.03 ng/mL (0.01-0.05) 10/21/17 05:30 B-Natriuretic Peptide 54.0 pg/mL (5.0-100.0) 10/21/17 05:30 Total Protein 5.8 gm/dL (6.0-8.3) L 10/22/17 05:05 Albumin 3.3 gm/dL (3.7-5.3) L 10/22/17 05:05 Globulin 2.5 gm/dL 10/22/17 05:05 Albumin/Globulin Ratio 1.3 (1.0-1.8) 10/22/17 05:05 TSH 63.34 uIU/ml (0.34-5.60) H 10/21/17 05:30 - Physical Exam Vitals and I&O: Vital Signs Temp 97.3 F 10/22/17 16:00 Pulse 90 10/22/17 16:00 Resp 17 10/22/17 17:00 BP 107/71 10/22/17 16:00 Pulse Ox 98 10/22/17 16:00 Intake & Output 10/21/17 10/22/17 10/22/17 18:59 06:59 18:59 Intake Total 480 250 650 Balance 480 250 650 Weight (lbs) 64.682 kg 65.091 kg 64.864 kg Intake: Intake, IV Amount 50 250 300 Vancomycin HCl 1 gm In 250 250 Dextrose 5% 250 ml @ 165 mls/hr IV Q12HR [facility] Rx#: [id number] cefTRIAXone 1 gm In 50 50 Sodium Chloride 0.9% 50 ml @ 100 mls/hr IV Q24H [facility] Rx#:[id number] Oral 430 350 Other: # Voids 3 4 # Bowel Movements 0 0 1 Stool Characteristics Soft Formed Weight Source Bedscale Bedscale Bedscale Active Medications: Current Medications Acetaminophen (Tylenol) 650 mg PO Q6H PRN PRN Reason: Pain (Mild) Stop: 12/20/17 09:05 Albuterol/Ipratropium (Duoneb Neb) 3 ml HHN Q6HR [facility] Stop: 12/20/17 11:59 Last Admin: 10/22/17 05:50 Dose: 3 ml Albuterol/Ipratropium (Duoneb Neb) 3 ml HHN [id number] [facility] Stop: 12/20/17 14:59 Last Admin: 10/22/17 14:13 Dose: 3 ml Aspirin (Ecotrin) 81 mg PO DAILY [facility] Stop: 12/20/17 09:59 Last Admin: 10/22/17 08:53 Dose: 81 mg Budesonide (Pulmicort) 0.5 mg HHN BIDRT [facility] Stop: 12/20/17 09:59 Last Admin: 10/22/17 06:45 Dose: 0.5 mg Budesonide (Pulmicort) 0.5 mg HHN BIDRT [facility] Stop: 12/20/17 18:59 Last Admin: 10/21/17 19:36 Dose: Not Given Bupropion HCl (Wellbutrin) 150 mg PO BID [facility]; Protocol Stop: 12/20/17 16:59 Last Admin: 10/22/17 17:37 Dose: 150 mg Clopidogrel Bisulfate (Plavix) 75 mg PO DAILY [facility] Stop: 12/20/17 09:59 Last Admin: 10/22/17 08:53 Dose: 75 mg Docusate Sodium (Colace) 100 mg PO BID [facility] Stop: 12/20/17 16:59 Last Admin: 10/22/17 08:53 Dose: 100 mg Escitalopram Oxalate (Lexapro) 20 mg PO HS [facility]; Protocol Stop: 12/20/17 20:59 Famotidine (Pepcid) 20 mg PO BID [facility] Stop: 12/20/17 16:59 Last Admin: 10/22/17 17:38 Dose: 20 mg Fentanyl (Duragesic 25 Mcg/Hr Tdm Patch) 25 patch TD Q72H [facility]; Protocol Stop: 12/20/17 13:59 Last Admin: 10/21/17 15:59 Dose: 1 patch Fluconazole (Diflucan) 100 mg PO DAILY [facility] Stop: 12/20/17 12:29 Last Admin: 10/22/17 08:53 Dose: 100 mg Fluticasone Propionate (Flonase) 1 spr NS DAILY [facility] Stop: 12/20/17 10:59 Last Admin: 10/22/17 08:54 Dose: Not Given Levofloxacin (Levaquin Pb) 500 mg in 100 mls @ 100 mls/hr IV Q24HR [facility] Stop: 12/21/17 05:59 Last Admin: 10/22/17 05:31 Dose: 100 mls/hr Ceftriaxone Sodium 1 gm/ (Sodium Chloride) 50 mls @ 100 mls/hr IV Q24H [facility] Stop: 12/20/17 10:59 Last Infusion: 10/22/17 12:25 Dose: Infused Vancomycin HCl 1 gm/ Dextrose 250 mls @ 165 mls/hr IV Q12HR [facility]; Protocol Stop: 12/20/17 20:59 Last Infusion: 10/22/17 10:25 Dose: Infused Vancomycin HCl 1 gm/ Sodium (Chloride) 250 mls @ 165 mls/hr IV Q12H [facility] Stop: 12/21/17 20:59 Levothyroxine Sodium (Synthroid) 0.05 mg PO QDAC [facility] Stop: 12/21/17 07:29 Last Admin: 10/22/17 06:33 Dose: 0.05 mg Lidocaine HCl (Xylocaine Viscous 2%) 15 ml PO TID PRN PRN Reason: mouth pain Stop: 12/20/17 11:40 Last Admin: 10/22/17 11:55 Dose: 15 ml Loratadine (Claritin) 10 mg PO DAILY [facility] Stop: 12/20/17 10:59 Last Admin: 10/22/17 08:53 Dose: 10 mg Losartan Potassium (Cozaar) 50 mg PO DAILY [facility] Stop: 12/20/17 10:59 Last Admin: 10/22/17 08:54 Dose: 50 mg Methylprednisolone Sodium Succinate (Solu-Medrol) 40 mg IV Q8HR [facility] Stop: 12/20/17 14:29 Last Admin: 10/22/17 14:50 Dose: 40 mg Miscellaneous (Misc Oral Tab) 1 tab PO QID PRN PRN Reason: SORE MOUTH Stop: 12/20/17 14:40 Miscellaneous (Vancomycin Iv Per Pharmacy) 1 ea PRN PRN PRN Reason: PROTOCOL Stop: 12/20/17 18:31 Miscellaneous (Probiotic Screen) 1 ea PRN PRN PRN Reason: PROTOCOL Stop: 12/21/17 17:18 Oxycodone HCl (Oxycontin) 20 mg PO Q4H PRN PRN Reason: Pain (Severe) Stop: 12/20/17 09:05 Last Admin: 10/22/17 13:57 Dose: 20 mg Simvastatin (Zocor) 10 mg PO HS [facility]; Protocol Stop: 12/20/17 20:59 Last Admin: 10/21/17 20:23 Dose: 10 mg Trazodone HCl (Desyrel) 25 mg PO HS [facility]; Protocol PRN Reason: Insomnia Stop: 12/20/17 20:59
--- NOTE | 2017-10-22 20:32 | Progress Notes ---
DATE: 10/22/2017 PULMONARY PROGRESS NOTE PROBLEMS: 1. Chronic bronchial asthma. 2. Underlying chronic pain syndrome. 3. Aspirin sensitivity. SYMPTOMS: Nil. She is upset. She wants to go home. She is breathing okay, etc. PHYSICAL EXAMINATION: VITAL SIGNS: The patient's recorded vitals temperature is 96.2, blood pressure 116/76, saturation 98% on 2 liters per minute. NECK: Veins not visualized. CHEST: Shows much better than before. LABORATORY DATA: White count is 24,000, hemoglobin is 13.4. The patient clinically appears to be stable. PLANS AND SUGGESTIONS: The patient is going home. It should be okay to let her go home and also discussion about possibly against medical advice discussed and there is a chest x-ray which showed no other acute abnormality. JOB# [id number]
[2017-10-23] MEDS: Albuterol/Ipratropium Neb 3 ML AERS HHN SCH ×4 (01:55→13:03)
[2017-10-23] MEDS: methylPREDNISolone SS 40 mg Vial IV SCH (04:50)
[2017-10-23] MEDS: Levofloxacin 500mg/100mL 500 MG/100 ML BAG IV SCH (05:42)
[2017-10-23] MEDS: Levothyroxine 0.05 Mg Tab PO SCH (06:58)
[2017-10-23] MEDS: Budesonide 0.5 Mg/2 mL Ud HHN SCH (07:22)
--- NOTE | 2017-10-23 08:33 | General Progress Note ---
Subjective - Review of Systems Service Date: 10/23/17 Subjective: 56 y/o female admitted for leukocytosis, h/o CML, Asthma, GERD, CVA, Hyperlipidemia, HTN. Depression, Anxiety d/o. No acute distress. Afebrile. Patient wanting to go back to the long term. Patient refusing blood draws. refusing IV vancomycin. Wants to go home. feeling better. Objective - Results Result Diagrams: 10/22/17 05:05 10/22/17 05:05 Recent Labs: Laboratory Last Values WBC 24.7 Th/cmm (4.8-10.8) H* D 10/22/17 05:05 RBC 3.83 Mil/cmm (3.80-5.10) 10/22/17 05:05 Hgb 13.4 gm/dL (12-16) 10/22/17 05:05 Hct 40.7 % (41.0-60) L 10/22/17 05:05 MCV 106.2 fl (81-100) H 10/22/17 05:05 MCH 35.0 pg (27.0-31.0) H 10/22/17 05:05 MCHC Differential 33.0 pg (28.0-36.0) 10/22/17 05:05 RDW 16.9 % (11.5-20.0) 10/22/17 05:05 Plt Count 496 Th/cmm (150-400) H 10/22/17 05:05 MPV 7.8 fl 10/22/17 05:05 Add Manual Diff YES 10/22/17 05:05 Band Neutrophils % 8 % (0-10) 10/22/17 05:05 Neutrophils (Manual) 79 % (40-80) 10/22/17 05:05 Lymphocytes 4 % (20-50) L 10/22/17 05:05 Monocytes 2 % (2-10) 10/22/17 05:05 Eosinophils 1 % (0-5) 10/21/17 05:30 Metamyelocytes 4 % (0-0) H 10/22/17 05:05 Myelocytes 3 % 10/22/17 05:05 Platelet Estimate INCREASED PLATELETS (NORMAL) 10/22/17 05:05 Macrocytosis 1+ 10/22/17 05:05 PT 9.7 SECONDS (9.5-11.5) 10/21/17 05:30 INR 0.93 (0.5-1.4) 10/21/17 05:30 PTT (Actin FS) 25.0 SECONDS (26.0-38.0) L 10/21/17 05:30 D-Dimer 652 ng/mL (100-400) H 10/21/17 05:30 Specimen Source Arterial 10/21/17 05:31 Sample Site Right Radial 10/21/17 05:31 pH 7.46 (7.35-7.45) H 10/21/17 05:31 pCO2 56.0 mmHg (35.0-45.0) H* 10/21/17 05:31 pO2 72.0 mmHg (80.0-100.0) L 10/21/17 05:31 HCO3 35.6 mEq/L (20.0-26.0) H 10/21/17 05:31 Base Excess 13.7 mEq/L (-3.0-3.0) H 10/21/17 05:31 O2 Saturation 95.0 % (92.0-100.0) 10/21/17 05:31 Golden Test Positive 10/21/17 05:31 Vent Rate NA 10/21/17 05:31 Inspired O2 28 10/21/17 05:31 Tidal Volume NA 10/21/17 05:31 PEEP NA 10/21/17 05:31 Pressure (ins/psv/peep) NA 10/21/17 05:31 Critical Value SC 10/21/17 05:31 Sodium 135 mEq/L (136-145) L 10/22/17 05:05 Potassium 4.2 mEq/L (3.5-5.1) 10/22/17 05:05 Chloride 100 mEq/L (98-107) 10/22/17 05:05 Carbon Dioxide 26.8 mEq/L (21.0-31.0) 10/22/17 05:05 Anion Gap 12.4 (7.0-16.0) 10/22/17 05:05 BUN 11 mg/dL (7-25) 10/22/17 05:05 Creatinine 0.7 mg/dL (0.6-1.2) 10/22/17 05:05 Est GFR ( Amer) > 60.0 ml/min (>90) 10/22/17 05:05 Est GFR (Non-Af Amer) > 60.0 ml/min 10/22/17 05:05 BUN/Creatinine Ratio 15.7 10/22/17 05:05 Glucose 104 mg/dL (70-105) 10/22/17 05:05 POC Glucose 89 MG/DL (70 - 105) 10/21/17 05:01 Whole Bld Lactic Acid 0.82 mmol/L (0.60-1.99) 10/21/17 05:00 Calcium 8.7 mg/dL (8.6-10.3) 10/22/17 05:05 Total Bilirubin 0.6 mg/dL (0.3-1.0) 10/22/17 05:05 AST 19 U/L (13-39) 10/22/17 05:05 ALT 18 U/L (7-52) 10/22/17 05:05 Alkaline Phosphatase 66 U/L (34-104) 10/22/17 05:05 Lactate Dehydrogenase 377 U/L (140-271) H 10/21/17 05:30 Troponin I 0.03 ng/mL (0.01-0.05) 10/21/17 05:30 B-Natriuretic Peptide 54.0 pg/mL (5.0-100.0) 10/21/17 05:30 Total Protein 5.8 gm/dL (6.0-8.3) L 10/22/17 05:05 Albumin 3.3 gm/dL (3.7-5.3) L 10/22/17 05:05 Globulin 2.5 gm/dL 10/22/17 05:05 Albumin/Globulin Ratio 1.3 (1.0-1.8) 10/22/17 05:05 TSH 63.34 uIU/ml (0.34-5.60) H 10/21/17 05:30 - Physical Exam Vitals and I&O: Vital Signs Temp 97.8 F 10/23/17 00:00 Pulse 89 10/23/17 08:22 Resp 22 10/23/17 07:23 BP 106/73 10/23/17 08:22 Pulse Ox 96 10/23/17 07:23 Intake & Output 10/22/17 10/23/17 10/23/17 18:59 06:59 18:59 Intake Total 650 Balance 650 Weight (lbs) 64.864 kg 63.049 kg Intake: Intake, IV Amount 300 Vancomycin HCl 1 gm In 250 Dextrose 5% 250 ml @ 165 mls/hr IV Q12HR [facility] Rx#: [id number] cefTRIAXone 1 gm In 50 Sodium Chloride 0.9% 50 ml @ 100 mls/hr IV Q24H [facility] Rx#:[id number] Oral 350 Other: # Voids 4 2 # Bowel Movements 1 Stool Characteristics Soft Soft Formed Formed Weight Source Bedscale Bedscale Active Medications: Current Medications Acetaminophen (Tylenol) 650 mg PO Q6H PRN PRN Reason: Pain (Mild) Stop: 12/20/17 09:05 Last Admin: 10/23/17 08:21 Dose: 650 mg Albuterol/Ipratropium (Duoneb Neb) 3 ml HHN Q6HR [facility] Stop: 12/20/17 11:59 Last Admin: 10/23/17 07:22 Dose: 3 ml Albuterol/Ipratropium (Duoneb Neb) 3 ml HHN H8YINTR [facility] Stop: 12/20/17 14:59 Last Admin: 10/22/17 19:02 Dose: 3 ml Aspirin (Ecotrin) 81 mg PO DAILY [facility] Stop: 12/20/17 09:59 Last Admin: 10/23/17 08:21 Dose: 81 mg Budesonide (Pulmicort) 0.5 mg HHN BIDRT [facility] Stop: 12/20/17 09:59 Last Admin: 10/23/17 07:22 Dose: 0.5 mg Budesonide (Pulmicort) 0.5 mg HHN BIDRT [facility] Stop: 12/20/17 18:59 Last Admin: 10/22/17 19:19 Dose: 0.5 mg Bupropion HCl (Wellbutrin) 150 mg PO BID [facility]; Protocol Stop: 12/20/17 16:59 Last Admin: 10/23/17 08:20 Dose: 150 mg Clopidogrel Bisulfate (Plavix) 75 mg PO DAILY [facility] Stop: 12/20/17 09:59 Last Admin: 10/23/17 08:21 Dose: 75 mg Docusate Sodium (Colace) 100 mg PO BID [facility] Stop: 12/20/17 16:59 Last Admin: 10/23/17 08:21 Dose: 100 mg Escitalopram Oxalate (Lexapro) 20 mg PO HS [facility]; Protocol Stop: 12/20/17 20:59 Last Admin: 10/22/17 21:11 Dose: 20 mg Famotidine (Pepcid) 20 mg PO BID [facility] Stop: 12/20/17 16:59 Last Admin: 10/23/17 08:21 Dose: 20 mg Fentanyl (Duragesic 25 Mcg/Hr Tdm Patch) 25 patch TD Q72H [facility]; Protocol Stop: 12/20/17 13:59 Last Admin: 10/21/17 15:59 Dose: 1 patch Fluconazole (Diflucan) 100 mg PO DAILY [facility] Stop: 12/20/17 12:29 Last Admin: 10/23/17 08:21 Dose: 100 mg Fluticasone Propionate (Flonase) 1 spr NS DAILY [facility] Stop: 12/20/17 10:59 Last Admin: 10/22/17 08:54 Dose: Not Given Levofloxacin (Levaquin Pb) 500 mg in 100 mls @ 100 mls/hr IV Q24HR [facility] Stop: 12/21/17 05:59 Last Admin: 10/23/17 05:42 Dose: 100 mls/hr Ceftriaxone Sodium 1 gm/ (Sodium Chloride) 50 mls @ 100 mls/hr IV Q24H [facility] Stop: 12/20/17 10:59 Last Infusion: 10/22/17 12:25 Dose: Infused Vancomycin HCl 1 gm/ Dextrose 250 mls @ 165 mls/hr IV Q12HR [facility]; Protocol Stop: 12/20/17 20:59 Last Infusion: 10/22/17 10:25 Dose: Infused Vancomycin HCl 1 gm/ Sodium (Chloride) 250 mls @ 165 mls/hr IV Q12H [facility] Stop: 12/21/17 20:59 Last Admin: 10/23/17 08:23 Dose: Not Given Levothyroxine Sodium (Synthroid) 0.05 mg PO QDAC [facility] Stop: 12/21/17 07:29 Last Admin: 10/23/17 06:58 Dose: 0.05 mg Lidocaine HCl (Xylocaine Viscous 2%) 15 ml PO TID PRN PRN Reason: mouth pain Stop: 12/20/17 11:40 Last Admin: 10/23/17 08:20 Dose: 15 ml Loratadine (Claritin) 10 mg PO DAILY [facility] Stop: 12/20/17 10:59 Last Admin: 10/23/17 08:21 Dose: 10 mg Losartan Potassium (Cozaar) 50 mg PO DAILY [facility] Stop: 12/20/17 10:59 Last Admin: 10/23/17 08:22 Dose: 50 mg Methylprednisolone Sodium Succinate (Solu-Medrol) 40 mg IV Q8HR [facility] Stop: 12/20/17 14:29 Last Admin: 10/23/17 04:50 Dose: 40 mg Miscellaneous (Misc Oral Tab) 1 tab PO QID PRN PRN Reason: SORE MOUTH Stop: 12/20/17 14:40 Miscellaneous (Vancomycin Iv Per Pharmacy) 1 ea PRN PRN PRN Reason: PROTOCOL Stop: 12/20/17 18:31 Miscellaneous (Probiotic Screen) 1 ea PRN PRN PRN Reason: PROTOCOL Stop: 12/21/17 17:18 Oxycodone HCl (Oxycontin) 20 mg PO Q4H PRN PRN Reason: Pain (Severe) Stop: 12/20/17 09:05 Last Admin: 10/23/17 08:20 Dose: 20 mg Simvastatin (Zocor) 10 mg PO HS [facility]; Protocol Stop: 12/20/17 20:59 Last Admin: 10/22/17 21:11 Dose: 10 mg Trazodone HCl (Desyrel) 25 mg PO HS PRN; Protocol PRN Reason: Insomnia Stop: 12/20/17 20:59 General: Alert, No acute distress HEENT: Atraumatic, PERRLA, EOMI Neck: Supple, no JVD Cardiovascular: Regular rate, Normal S1, Normal S2 Lungs: Clear to auscultation Abdomen: Bowel sounds Extremities: Edema (+1), no Clubbing, no Cyanosis Assessment/Plan - Assessment Assessment: Shortness of breath improved leukocytosis improved to 24K most likely due to CML hypothyroidism ... on synthroid PO daily CVA h/o CML COPD CHF cellulitis lower ext. ... will change antiobitics to PO Keflex depression GERD hyperlipidemia - Plan Plan: will admit to telemetry gentle hydration ID consult will continue IV antibiotics pulmonary consult psychaitric consult endocrinology consult doppler US venous LE negative start levothyroxine 50mcg daily restart home meds when she return to SNF
[2017-10-23] MEDS: Fluticasone Propionate Nasal 1 SPR SPR NS SCH (08:34)
[2017-10-23] MEDS: cefTRIAXone 1 GM in Sodium Chloride 0.9% 50 ML IV SCH (11:14)
--- NOTE | 2017-10-27 13:12 | Discharge Summary ---
DATE OF DISCHARGE: 10/23/2017 PRELIMINARY DIAGNOSES: 1. Shortness of breath. 2. Leukocytosis with white count noted in the 30,000s. 3. Hypothyroidism. 4. History of cerebrovascular accident. 5. History of chronic myelogenous leukemia. 6. Chronic obstructive pulmonary disease. 7. Congestive heart failure. 8. Cellulitis of the lower extremities. 9. Depression. 10. Gastroesophageal reflux disease. 11. Hyperlipidemia. DISCHARGE DIAGNOSES: 1. Shortness of breath, now resolved. 2. Leukocytosis, most likely secondary to chronic myelogenous leukemia. 3. Hypothyroidism. 4. Cerebrovascular accident. 5. Chronic obstructive pulmonary disease. 6. Congestive heart failure. 7. Cellulitis of the lower extremities. 8. Depression. 9. Gastroesophageal reflux disease. 10. Hyperlipidemia. BRIEF HISTORY OF PRESENT ILLNESS: This is a 56-year-old female who [facility] to [facility] for increased shortness of breath noted by the nursing staff. The patient has a past medical history of COPD, thyroid disorder, hyperlipidemia, CVA, multiple myeloma, also has a history of chronic myelogenous leukemia, CHF, hypertension, depression, gastroesophageal reflux disease. While in the ER, the patient had some initial lab work that revealed LDH of 377. D-dimer was 652. BNP was low at 54. Troponin I was 0.03. Sodium 139, potassium 3.3, BUN and creatinine 14/0.4, glucose 85. Her liver enzymes were essentially normal and only other abnormality was her white count, which came back to be 32,000, however, her lactic acid was 0.82. The patient was subsequently admitted for further evaluation and treatment. HOSPITAL COURSE: The patient improved during her hospital stay, was started on IV antibiotics. The patient was seen and evaluated by Pulmonary. Please see dictated report. The patient also had seen Infectious Disease for elevated white count. Please see dictated report. Also had seen Heme/Oncology for history of leukemia. Please see dictated report. The patient did present with some swelling and redness to her lower extremities and a Doppler ultrasound was ordered, which revealed no clot. The patient did improve during her hospital stay and was subsequently discharged in stable condition to a jail facility to continue her current medications. [facility]# [id number]
== END 2017-10-23 13:40 | DRG 691 ==
LOC: ER 04:58 → TELE 08:36
PROVIDERS: ADMIT Family Medicine; ATTEND Family Medicine
DX: C92.10 Chronic myeloid leukemia, BCR/ABL-positive, not having achieved remission (principal); E87.3 Alkalosis; J44.1 Chronic obstructive pulmonary disease with (acute) exacerbation; I50.9 Heart failure, unspecified; I11.0 Hypertensive heart disease with heart failure; L03.115 Cellulitis of right lower limb; J45.901 Unspecified asthma with (acute) exacerbation; C90.00 Multiple myeloma not having achieved remission; F32.9 Major depressive disorder, single episode, unspecified; K21.9 Gastro-esophageal reflux disease without esophagitis; E78.5 Hyperlipidemia, unspecified; F39 Unspecified mood [affective] disorder; F41.9 Anxiety disorder, unspecified; R06.03 Acute respiratory distress; G89.29 Other chronic pain; J98.11 Atelectasis; K12.1 Other forms of stomatitis; E03.8 Other specified hypothyroidism; Z88.8 Allergy status to other drugs, medicaments and biological substances; Z91.041 Radiographic dye allergy status; Z79.899 Other long term (current) drug therapy; Z86.73 Personal history of transient ischemic attack (TIA), and cerebral infarction without residual deficits
CPT/HCPCS: 36415-UA; 36600-90; 71045-TC; 80053-TC; 82803-TC; 82948-90; 83605; 83615-TC; 83880-TC; 84443-TC; 84484-TC; 85007-TC; 85025-TC; 85379-TC; 85610-TC; 88189-90; 93005; 93970-TC-50; 94640; 94760; J0696; J1956; J2001; J2920; J3370; J3480; Z7610